=== PATIENT | female | born 1955 | race Caucasian/White ===

== ENCOUNTER 2016-08-28 16:45 | Emergency (ER) | payer MEDICARE, MEDICAID ==
[~2016-08-28] VITALS: Ht 154.9 cm; Wt 56.7 kg
[2016-08-28 16:45] VITALS: BP 122/65
[~2016-08-28 16:45] MED LIST: CALC500T52 PO; CHOL400T11 PO; CLON2TAB3 PO; DOCU-270 PO; FLUO40CA8 PO; GABA800T PO; HYDR-3326 PO; IBUP-1955 PO; MAG30ORA PO; PANT40SU PO
[2016-08-28] MEDS ORDERED: LORAZEPAM 1 MG TABLET ONE (18:18)
[2016-08-28] MEDS ORDERED: LORAZEPAM 1 MG TABLET PO ONE (18:30)
== END 2016-08-28 18:27 | disposition home or self-care (01) ==
LOC: ER 16:46
DX: F41.9 Anxiety disorder, unspecified (principal); F32.9 Major depressive disorder, single episode, unspecified; Z88.8 Allergy status to other drugs, medicaments and biological substances; Z88.6 Allergy status to analgesic agent; F17.200 Nicotine dependence, unspecified, uncomplicated; Z98.890 Other specified postprocedural states; Z96.659 Presence of unspecified artificial knee joint; G62.9 Polyneuropathy, unspecified
CPT/HCPCS: 99283; A4606; Z7610

== ENCOUNTER 2016-09-03 12:56 | Emergency (ER) | payer MEDICARE, MEDICAID ==
[~2016-09-03] VITALS: Ht 157.5 cm; Wt 65.8 kg
[2016-09-03 13:10] VITALS: BP 148/70
== END 2016-09-03 13:18 | disposition home or self-care (01) ==
LOC: ER 12:57
DX: F41.9 Anxiety disorder, unspecified (principal); G62.9 Polyneuropathy, unspecified; F17.200 Nicotine dependence, unspecified, uncomplicated; G89.29 Other chronic pain; F32.9 Major depressive disorder, single episode, unspecified; Z88.6 Allergy status to analgesic agent; Z88.8 Allergy status to other drugs, medicaments and biological substances
CPT/HCPCS: A4606; Z7610

== ENCOUNTER 2016-09-04 15:32 | Emergency (ER) | payer MEDICARE, MEDICAID ==
[~2016-09-04] VITALS: Ht 152.4 cm; Wt 54.4 kg
[2016-09-04 16:00] VITALS: BP 156/70
== END 2016-09-04 16:51 | disposition left against medical advice (07) ==
LOC: ER 15:38
DX: Z53.21 Procedure and treatment not carried out due to patient leaving prior to being seen by health care provider (principal)
CPT/HCPCS: A4606; A6402; Z7610

== ENCOUNTER 2016-09-06 13:37 | Emergency (ER) | payer MEDICARE, MEDICAID ==
[~2016-09-06] VITALS: Ht 91.4 cm; Wt 52.2 kg
[2016-09-06] MEDS ORDERED: IV NS 0.9% 1,000 ML BAG IV ONE (15:00)
[2016-09-06] MEDS ORDERED: IV NS 0.9% 1,000 ML ONE (15:08)
[2016-09-06] MEDS ORDERED: IV SET PRIMARY 1 EA INFUS.SET MC ONE (15:08)
[2016-09-06 15:11] LABS: BASOPHILS # (AUTO) 0.1 /CMM (0.0-0.2); BASOPHILS % (AUTO) 1.6 % (0.0-2.0); DIFF TOTAL % 100 %; EOSINOPHILS # (AUTO) 0.1 /CMM (0.0-0.7); EOSINOPHILS % (AUTO) 1.2 % (0.0-6.0); HEMATOCRIT 31 % (33-45); HEMOGLOBIN 10.2 g/dL (11.5-14.8); LYMPHOCYTES # (AUTO) 1.4 /CMM (0.8-4.8); LYMPHOCYTES % (AUTO) 22.3 % (20.0-44.0); MEAN CORPUSCULAR HEMOGLOBIN 26 PG (26.0-33.0); MEAN CORPUSCULAR HGB CONC 33 g/dl (31.0-36.0); MEAN CORPUSCULAR VOLUME 78 fL (82-100); MONOCYTES # (AUTO) 0.5 /CMM (0.1-1.30); MONOCYTES % (AUTO) 8.4 % (2.0-12.0); NEUTROPHILS # (AUTO) 4.4 /CMM (1.8-8.9); NEUTROPHILS % (AUTO) 66.5 % (43.0-81.0); PLATELET COUNT (AUTO) 298 /CMM (150-450); RED BLOOD CELL COUNT(AUTO) 3.99 MIL/uL (4.0-5.2); WHITE BLOOD COUNT (AUTO) 6.5 K/uL (4.3-11.0)
[2016-09-06 15:20] LABS: ANION GAP 10 (5-14); CALCIUM, SERUM 8.3 mg/dL (8.5-10.1); CARBON DIOXIDE 29 mmol/L (21-32); CHLORIDE 104 mmol/L (98-107); CREATININE 0.8 mg/dL (0.6-1.3); GFR 73 mL/min (>60); GLUCOSE 121 mg/dL (74-106); POTASSIUM 3.6 mmol/L (3.5-5.1); SODIUM SERUM 139 mmol/L (136-145); UREA NITROGEN, BLOOD 9 mg/dL (7-18)
[2016-09-06 15:34] LABS: ALANINE AMINOTRANSFERASE 14 U/L (12-78); ALBUMIN 3.3 g/dL (3.4-5.0); ASPARTATE AMINOTRANSFERASE 22 U/L (15-37); BILIRUBIN,DIRECT 0.1 mg/dL (0.0-0.2); BILIRUBIN,TOTAL 0.3 mg/dL (0.2-1.0); INDIRECT BILIRUBIN 0.2 mg/dL (0.0-1.1); TOTAL PROTEIN, SERUM 6.4 g/dL (6.4-8.2)
[2016-09-06 15:40] LABS: ACETAMINOPHEN 0 ug/ml (10-30)
[2016-09-06 18:13] VITALS: BP 115/78
== END 2016-09-06 18:14 | disposition home or self-care (01) ==
LOC: ER 13:40
DX: T43.221A Poisoning by selective serotonin reuptake inhibitors, accidental (unintentional), initial encounter (principal); G89.4 Chronic pain syndrome; F17.200 Nicotine dependence, unspecified, uncomplicated; Z88.6 Allergy status to analgesic agent; Z88.8 Allergy status to other drugs, medicaments and biological substances; Y92.89 Other specified places as the place of occurrence of the external cause
CPT/HCPCS: 36415; 80048; 80076; 85025; 93005; 99285; A4606; G0480; G0481; G0482; J7030; G6038-TC; G6039-TC; G6040-TC; Z7610

== ENCOUNTER 2016-09-07 01:18 | Emergency (ER) | payer MEDICARE, MEDICAID ==
[~2016-09-07] VITALS: Ht 147.3 cm; Wt 45.4 kg
[2016-09-07 05:53] VITALS: BP 142/79
== END 2016-09-07 05:54 | disposition home or self-care (01) ==
LOC: ER 01:21
DX: Z00.8 Encounter for other general examination (principal); F17.200 Nicotine dependence, unspecified, uncomplicated; G89.4 Chronic pain syndrome; Z88.6 Allergy status to analgesic agent; Z88.8 Allergy status to other drugs, medicaments and biological substances
CPT/HCPCS: 99283; A4606; Z7610

== ENCOUNTER 2016-09-07 09:46 | Emergency (ER) | payer MEDICARE, MEDICAID ==
[~2016-09-07] VITALS: Ht 152.4 cm; Wt 49.4 kg
[2016-09-07 10:00] VITALS: BP 132/71
[2016-09-07] MEDS ORDERED: PANTOPRAZOLE 40 MG TABLET.DR PO ONE ×2 (10:01→10:30)
[2016-09-07] MEDS ORDERED: OLANZAPINE 5 MG TABLET ONE (10:01)
[2016-09-07] MEDS ORDERED: OLANZAPINE 5 MG TABLET PO ONE (10:30)
== END 2016-09-07 10:14 | disposition home or self-care (01) ==
LOC: ER 09:48
DX: G89.4 Chronic pain syndrome (principal); F17.200 Nicotine dependence, unspecified, uncomplicated; Z76.5 Malingerer [conscious simulation]; Z88.5 Allergy status to narcotic agent; Z88.8 Allergy status to other drugs, medicaments and biological substances
CPT/HCPCS: 99283; A4606; Z7610

== ENCOUNTER 2016-09-07 14:18 | Emergency (ER) | payer MEDICARE, MEDICAID ==
[~2016-09-07] VITALS: Ht 152.4 cm; Wt 45.4 kg
[2016-09-07 14:24] VITALS: BP 151/75
== END 2016-09-07 15:08 | disposition home or self-care (01) ==
LOC: ER 14:20
DX: Z76.5 Malingerer [conscious simulation] (principal); G89.4 Chronic pain syndrome; F11.20 Opioid dependence, uncomplicated; F17.200 Nicotine dependence, unspecified, uncomplicated; Z98.890 Other specified postprocedural states; Z88.6 Allergy status to analgesic agent; Z88.8 Allergy status to other drugs, medicaments and biological substances
CPT/HCPCS: 99283; A4606; Z7610

== ENCOUNTER 2016-09-08 05:27 | Emergency (ER) | payer MEDICARE, MEDICAID ==
[~2016-09-08] VITALS: Ht 154.9 cm; Wt 45.4 kg
[2016-09-08 05:36] VITALS: BP 120/71
[2016-09-08 06:52] LABS: BASOPHILS # (AUTO) 0.1 /CMM (0.0-0.2); BASOPHILS % (AUTO) 0.8 % (0.0-2.0); DIFF TOTAL % 100 %; HEMATOCRIT 38 % (33-45); HEMOGLOBIN 12.1 g/dL (11.5-14.8); LYMPHOCYTES # (AUTO) 0.7 /CMM (0.8-4.8); LYMPHOCYTES % (AUTO) 10.7 % (20.0-44.0); MEAN CORPUSCULAR HEMOGLOBIN 26 PG (26.0-33.0); MEAN CORPUSCULAR HGB CONC 32 g/dl (31.0-36.0); MEAN CORPUSCULAR VOLUME 79 fL (82-100); MONOCYTES # (AUTO) 0.4 /CMM (0.1-1.30); MONOCYTES % (AUTO) 5.9 % (2.0-12.0); NEUTROPHILS # (AUTO) 5.5 /CMM (1.8-8.9); NEUTROPHILS % (AUTO) 82.6 % (43.0-81.0); PLATELET COUNT (AUTO) 371 /CMM (150-450); RED BLOOD CELL COUNT(AUTO) 4.75 MIL/uL (4.0-5.2); WHITE BLOOD COUNT (AUTO) 6.6 K/uL (4.3-11.0)
[2016-09-08 07:01] LABS: ANION GAP 14 (5-14); CALCIUM, SERUM 9.1 mg/dL (8.5-10.1); CARBON DIOXIDE 27 mmol/L (21-32); CHLORIDE 99 mmol/L (98-107); CREATININE 0.7 mg/dL (0.6-1.3); GFR 85 mL/min (>60); GLUCOSE 127 mg/dL (74-106); POTASSIUM 3.2 mmol/L (3.5-5.1); SODIUM SERUM 137 mmol/L (136-145); UREA NITROGEN, BLOOD 9 mg/dL (7-18)
[2016-09-08 07:07] LABS: ALANINE AMINOTRANSFERASE 19 U/L (12-78); ASPARTATE AMINOTRANSFERASE 21 U/L (15-37); BILIRUBIN,DIRECT 0.1 mg/dL (0.0-0.2); BILIRUBIN,TOTAL 0.3 mg/dL (0.2-1.0); INDIRECT BILIRUBIN 0.2 mg/dL (0.0-1.1); SALICYLATE 3.2 mg/dL (2.8-20.0); TOTAL PROTEIN, SERUM 7.7 g/dL (6.4-8.2)
[2016-09-08 07:10] LABS: ACETAMINOPHEN 0 ug/ml (10-30)
[2016-09-08 07:14] LABS: THYROID STIMULATING HORMONE 0.154 uIU/mL (0.358-3.74)
[2016-09-08] MEDS ORDERED: ACETAMINOPHEN 325 MG TABLET ONE (08:01)
[2016-09-08 08:16] LABS: CANNABINOID, URINE NEGATIVE (NEGATIVE); PHENCYCLIDINE SCREEN,URINE NEGATIVE (NEGATIVE)
[2016-09-08 08:19] LABS: ADD UA MICROSCOPIC YES; KETONES,URINE NEGATIVE (NEGATIVE); LEUKOCYTE ESTERASE ,URINE NEGATIVE (NEGATIVE)
[2016-09-08 08:30] LABS: ADD URINE CULTURE NO; WBC,URINE NONE SEEN /HPF (0-3)
[2016-09-08] MEDS ORDERED: ACETAMINOPHEN 650 MG/20.3 ML UDC PO ONE (08:30)
== END 2016-09-08 09:49 | disposition left against medical advice (07) ==
LOC: ER 05:29
DX: F41.9 Anxiety disorder, unspecified (principal); F32.9 Major depressive disorder, single episode, unspecified; G89.4 Chronic pain syndrome; F17.210 Nicotine dependence, cigarettes, uncomplicated; E05.90 Thyrotoxicosis, unspecified without thyrotoxic crisis or storm; Z88.8 Allergy status to other drugs, medicaments and biological substances; Z88.6 Allergy status to analgesic agent
CPT/HCPCS: 36415; 80048-TC; 80076-TC; 80305; 81000-TC; 84439-TC; 84443-TC; 84480; 85025-TC; A4606; G6038-TC; G6039-TC; G6040-TC; Z7610

== ENCOUNTER 2016-10-15 14:38 | Emergency (ER) | payer MEDICARE, MEDICAID ==
[~2016-10-15] VITALS: Ht 152.4 cm; Wt 45.4 kg
[2016-10-15 15:18] VITALS: BP 131/71
[2016-10-15] MEDS ORDERED: PROCHLORPERAZINE MALEATE 10 MG TABLET PO ONE (16:00)
[2016-10-15] MEDS ORDERED: clonazePAM 1 MG TABLET PO ONE (16:00)
== END 2016-10-15 15:43 | disposition home or self-care (01) ==
LOC: ER 14:41
DX: Z76.0 Encounter for issue of repeat prescription (principal); G89.4 Chronic pain syndrome; F32.9 Major depressive disorder, single episode, unspecified; K58.9 Irritable bowel syndrome, unspecified; F17.200 Nicotine dependence, unspecified, uncomplicated; F41.9 Anxiety disorder, unspecified; Z88.5 Allergy status to narcotic agent; Z88.8 Allergy status to other drugs, medicaments and biological substances
CPT/HCPCS: 99283; A4606; Z7610

== ENCOUNTER 2016-10-19 19:03 | Emergency (ER) | payer MEDICARE, MEDICAID ==
[~2016-10-19] VITALS: Ht 152.4 cm; Wt 45.4 kg
[2016-10-19] MEDS ORDERED: SULFAMETH/TRIMETH 800/160 MG 1 UDTAB TABLET PO ONE ×2 (19:26→19:30)
[2016-10-19] MEDS ORDERED: CEPHALEXIN MONOHYDRATE 500 MG CAPSULE PO ONE ×2 (19:27→19:30)
[2016-10-19] MEDS ORDERED: LIDOCAINE HCL/PF 1% 30 ML VIAL TP ONE (19:30)
[2016-10-19] MEDS ORDERED: SILVER SULFADIAZINE CREAM 25 GM TUBE ONE (19:44)
[2016-10-19] MEDS ORDERED: SILVER SULFADIAZINE CREAM 25 GM TUBE TP ONE (20:00)
[2016-10-19 20:06] VITALS: BP 103/67
== END 2016-10-19 20:07 | disposition home or self-care (01) ==
LOC: ER 19:05
DX: T23.231A Burn of second degree of multiple right fingers (nail), not including thumb, initial encounter (principal); Z76.5 Malingerer [conscious simulation]; F32.9 Major depressive disorder, single episode, unspecified; G89.4 Chronic pain syndrome; F17.200 Nicotine dependence, unspecified, uncomplicated; Z98.890 Other specified postprocedural states; Z88.6 Allergy status to analgesic agent; Z88.8 Allergy status to other drugs, medicaments and biological substances; Z96.659 Presence of unspecified artificial knee joint; X08.8XXA Exposure to other specified smoke, fire and flames, initial encounter; Y93.89 Activity, other specified; Y92.89 Other specified places as the place of occurrence of the external cause; Y99.8 Other external cause status
CPT/HCPCS: 10060; 99284; A4606; A6402; J3490; Z7610

== ENCOUNTER 2016-10-21 11:01 | Emergency (ER) | payer MEDICARE, MEDICAID ==
[~2016-10-21] VITALS: Ht 152.4 cm; Wt 45.4 kg
[2016-10-21 11:03] VITALS: BP 153/90
[2016-10-21 11:53] LABS: BASOPHILS % (AUTO) 0.4 % (0.0-2.0); DIFF TOTAL % 100 %; EOSINOPHILS % (AUTO) 0.4 % (0.0-6.0); HEMATOCRIT 31 % (33-45); HEMOGLOBIN 10.6 g/dL (11.5-14.8); LYMPHOCYTES # (AUTO) 1.2 /CMM (0.8-4.8); LYMPHOCYTES % (AUTO) 16.3 % (20.0-44.0); MEAN CORPUSCULAR HEMOGLOBIN 27 PG (26.0-33.0); MEAN CORPUSCULAR HGB CONC 34 g/dl (31.0-36.0); MEAN CORPUSCULAR VOLUME 78 fL (82-100); MONOCYTES # (AUTO) 0.5 /CMM (0.1-1.30); MONOCYTES % (AUTO) 6.6 % (2.0-12.0); NEUTROPHILS # (AUTO) 5.5 /CMM (1.8-8.9); NEUTROPHILS % (AUTO) 76.3 % (43.0-81.0); PLATELET COUNT (AUTO) 528 /CMM (150-450); RED BLOOD CELL COUNT(AUTO) 3.97 MIL/uL (4.0-5.2); WHITE BLOOD COUNT (AUTO) 7.2 K/uL (4.3-11.0)
[2016-10-21 12:03] LABS: ANION GAP 13 (5-14); CALCIUM, SERUM 8.6 mg/dL (8.5-10.1); CARBON DIOXIDE 27 mmol/L (21-32); CHLORIDE 100 mmol/L (98-107); CREATININE 0.7 mg/dL (0.6-1.3); GFR 85 mL/min (>60); GLUCOSE 95 mg/dL (74-106); POTASSIUM 3.4 mmol/L (3.5-5.1); SODIUM SERUM 137 mmol/L (136-145); UREA NITROGEN, BLOOD 8 mg/dL (7-18)
[2016-10-21 12:10] LABS: ACETAMINOPHEN 3 ug/ml (10-30); ALANINE AMINOTRANSFERASE 27 U/L (12-78); ALBUMIN 3.1 g/dL (3.4-5.0); ASPARTATE AMINOTRANSFERASE 24 U/L (15-37); BILIRUBIN,DIRECT 0.1 mg/dL (0.0-0.2); BILIRUBIN,TOTAL 0.2 mg/dL (0.2-1.0); INDIRECT BILIRUBIN 0.1 mg/dL (0.0-1.1); TOTAL PROTEIN, SERUM 7.1 g/dL (6.4-8.2)
[2016-10-21 13:09] LABS: ADD UA MICROSCOPIC NO; KETONES,URINE Negative (NEGATIVE); LEUKOCYTE ESTERASE ,URINE Negative (NEGATIVE)
[2016-10-21 13:16] LABS: CANNABINOID, URINE NEGATIVE (NEGATIVE); PHENCYCLIDINE SCREEN,URINE NEGATIVE (NEGATIVE)
== END 2016-10-21 15:27 ==
LOC: ER 11:03
DX: F32.9 Major depressive disorder, single episode, unspecified (principal); G89.4 Chronic pain syndrome; F17.200 Nicotine dependence, unspecified, uncomplicated; Z88.8 Allergy status to other drugs, medicaments and biological substances; Z88.6 Allergy status to analgesic agent
CPT/HCPCS: 36415; 80048; 80076; 80305; 80329; 81001; 85025; 99285; A4606; G0480 ×2; 81000-TC; G6039-TC; Z7610

== ENCOUNTER 2016-10-27 03:18 | Emergency (ER) | payer MEDICARE, MEDICAID | END 2016-10-27 03:47 | disposition left against medical advice (07) | LOC: ER 03:18 | DX: Z53.21 Procedure and treatment not carried out due to patient leaving prior to being seen by health care provider (principal) ==

== ENCOUNTER 2016-10-30 11:22 | Emergency (ER) | payer MEDICARE, MEDICAID ==
[~2016-10-30] VITALS: Ht 152.4 cm; Wt 65.8 kg
--- NOTE | 2016-10-30 11:49 | NUR ---
PT TO ED ROOM 02. FEELING ANXIOUS S/P "I COULDN'T SPEAK TO MY MOTHER YESTRDAY". A/A/O. AMBULATES WITH WALKER. SIDE RAILS UP. HOB ELEVATED. CONNECTED TO MONITOR. SEEN AND EVALAUTED BY ED PROVIDER.
[2016-10-30] MEDS ORDERED: LORAZEPAM 1 MG TABLET ONE (11:56)
[2016-10-30] MEDS ORDERED: LORAZEPAM 1 MG TABLET PO ONE (12:00)
--- NOTE | 2016-10-30 12:20 | NUR ---
Patient discharged to self care in stable condition. Written and verbal after care instructions given. Patient verbalizes understanding of instruction.
[2016-10-30 12:21] VITALS: BP 135/76
== END 2016-10-30 12:22 | disposition home or self-care (01) ==
LOC: ER 11:23
DX: F41.9 Anxiety disorder, unspecified (principal); F32.9 Major depressive disorder, single episode, unspecified; F17.210 Nicotine dependence, cigarettes, uncomplicated; Z88.8 Allergy status to other drugs, medicaments and biological substances; Z88.6 Allergy status to analgesic agent
CPT/HCPCS: 93005; 99284; A4606; Z7610

== ENCOUNTER 2016-10-31 19:49 | Emergency (ER) | payer MEDICARE, MEDICAID ==
[~2016-10-31] VITALS: Ht 152.4 cm; Wt 54.4 kg
[2016-10-31 20:01] VITALS: BP 139/84
--- NOTE | 2016-11-01 05:00 | NUR ---
Patient discharged to home in stable condition. Written and verbal after care instructions given. pt left without signing d/c papers.
[2016-11-01] MEDS ORDERED: FLUO10TA PO (19:22)
[2016-11-01] MEDS ORDERED: MELO-270 PO (19:22)
[2016-11-01] MEDS ORDERED: NAPR375T3 PO (19:22)
[2016-11-01] MEDS ORDERED: ACET-2605 PO (19:22)
[2016-11-01] MEDS ORDERED: DIPH25CA83 PO (19:22)
[2016-11-01] MEDS ORDERED: CEPH-570 PO (19:22)
== END 2016-11-01 05:00 | disposition home or self-care (01) ==
LOC: ER 19:50
DX: F41.9 Anxiety disorder, unspecified (principal); F32.9 Major depressive disorder, single episode, unspecified; G89.4 Chronic pain syndrome; F17.200 Nicotine dependence, unspecified, uncomplicated; Z88.6 Allergy status to analgesic agent; Z88.8 Allergy status to other drugs, medicaments and biological substances
CPT/HCPCS: A4606; Z7610

== ENCOUNTER 2016-11-01 12:56 | Inpatient (IN) | payer MEDICARE, MEDICAID ==
[~2016-11-01] VITALS: Ht 152.4 cm; Wt 49.4 kg
[2016-11-01] MEDS ORDERED: LORAZEPAM 1 MG TABLET PO ONE (18:00)
[2016-11-01] MEDS ORDERED: LORAZEPAM 1 MG TABLET ONE (18:19)
--- NOTE | 2016-11-01 18:38 | NUR ---
CALLED FOR FOOD TRAY
--- NOTE | 2016-11-01 19:00 | NUR ---
PT RESTING IN ER BED, NAD NOTED, SKIN WARM AND DRY. WILL CONTINUE TO MONITORED
[2016-11-01 19:09] LABS: CALCIUM, SERUM 8.9 mg/dL (8.5-10.1); CREATININE 0.8 mg/dL (0.6-1.3); POTASSIUM 3.8 mmol/L (3.5-5.1)
[2016-11-01 19:15] LABS: ALBUMIN 3.8 g/dL (3.4-5.0); BILIRUBIN,DIRECT 0.1 mg/dL (0.0-0.2); BILIRUBIN,TOTAL 0.4 mg/dL (0.2-1.0); TOTAL PROTEIN, SERUM 7.4 g/dL (6.4-8.2)
[2016-11-01] MEDS ORDERED: DIPH25CA83 PO (19:22)
[2016-11-01] MEDS ORDERED: MELO-270 PO (19:22)
[2016-11-01] MEDS ORDERED: ACET-2605 PO (19:22)
[2016-11-01] MEDS ORDERED: FLUO10TA PO (19:22)
[2016-11-01] MEDS ORDERED: NAPR375T3 PO (19:22)
[2016-11-01] MEDS ORDERED: CEPH-570 PO (19:22)
[2016-11-01 20:00] VITALS: BP 137/82
[2016-11-01 20:08] LABS: BASOPHILS # (AUTO) 0.1 /CMM (0.0-0.2); BASOPHILS % (AUTO) 0.8 % (0.0-2.0); EOSINOPHILS # (AUTO) 0.1 /CMM (0.0-0.7); EOSINOPHILS % (AUTO) 0.9 % (0.0-6.0); HEMATOCRIT 33 % (33-45); HEMOGLOBIN 11.2 g/dL (11.5-14.8); LYMPHOCYTES # (AUTO) 1.4 /CMM (0.8-4.8); LYMPHOCYTES % (AUTO) 19.3 % (20.0-44.0); MEAN CORPUSCULAR HEMOGLOBIN 27 PG (26.0-33.0); MEAN CORPUSCULAR HGB CONC 34 g/dl (31.0-36.0); MEAN CORPUSCULAR VOLUME 78 fL (82-100); MONOCYTES # (AUTO) 0.4 /CMM (0.1-1.30); MONOCYTES % (AUTO) 5.7 % (2.0-12.0); NEUTROPHILS # (AUTO) 5.1 /CMM (1.8-8.9); NEUTROPHILS % (AUTO) 73.3 % (43.0-81.0); PLATELET COUNT (AUTO) 501 /CMM (150-450); RDW COEFFICIENT OF VARIATION 15.8 (11.5-15.0); RED BLOOD CELL COUNT(AUTO) 4.24 MIL/uL (4.0-5.2); WHITE BLOOD COUNT (AUTO) 7.1 K/uL (4.3-11.0)
[2016-11-01] MEDS ORDERED: Z GUARD REMEDY 2 OZ OINT TP PRN (21:00)
[2016-11-01] MEDS ORDERED: MISCELLANEOUS MED 1 EA EA PO PRN (21:00)
[2016-11-01] MEDS ORDERED: NAPROXEN 375 MG TABLET PO PRN (21:00)
[2016-11-01] MEDS ORDERED: MAGNESIUM HYDROXIDE 30 ML UDC PO PRN (21:00)
[2016-11-01] MEDS ORDERED: CLONAZEPAM 1 MG PO PRN (21:00)
[2016-11-01] MEDS ORDERED: ACETAMINOPHEN 325 MG TABLET PO PRN (21:00)
[2016-11-01] MEDS ORDERED: ZOLPIDEM TARTRATE 5 MG TABLET PO PRN (21:00)
[2016-11-01 21:52] LABS: PREALBUMIN 26.3 MG/DL (18.0-35.7)
--- NOTE | 2016-11-01 22:06 | NUR ---
REPORT GIVEN TO GUNNER WARREN FOR DANG. 20G LEFT AC IV STARTED.
[2016-11-01 22:15] VITALS: BP 137/82
--- NOTE | 2016-11-01 22:15 | NUR ---
MS/FLOORING INSTALLER; ADMITTED 61 YEARS OLD FEMALE PT. FROM ER ACCOMPANIED BY ER MALE STAFF VIA PADMINIHatsizeDOV WITH DX: WT LOSS. PT ALERT AND ORIENTED. HL ON LAC INTACT. WITH ABRASION/ WOUND ON RT 4TH FINGER REFUSED PHOTO. PT REFUSED THE RESTS OF THE BODY TO BE ASSESSED. PT. REFUSED BED ALARM TO BE ON . PT INSTRUCTED TO CALL FOR HELP AND INSTRUCTED HOW TO OPERATE THE CALL LIGHT. BED ON LOWER POSITION AND LOCKED FOR SAFETY. UPPER PART OF BED SIDE RAILS ARE UP FOR SAFETY. CONTINUE TO MONITOR.
--- NOTE | 2016-11-01 22:15 | NUR ---
MS/INSIDE SALES TRAINER; ADMITTED 61 YEARS OLD FEMALE PT. FROM ER ACCOMPANIED BY ER MALE STAFF WITH DX; WT LOSS. PT ALERT AND ORIENTED X 3. NOTED PT WALKED FROM THE GURNEY TO THE BED WITH THE ER MALE STAFF. HL INTACT ON LAC. NOTED WITH ABRASION ON HER RT 4TH FINGER . PT REFUSED THE RESTS OF BODY ASSESSMENT AND REFUSED PHOTO ON HER RT 4TH FINGER. PLACED ON TELEMETRY. NOTED LT ELBOW SWOLLEN SHE SHE HAD SURGERY TO THIS ELBOW 8 YEARS AGO. PT REFUSED BED ALARM TO BE ON FOR SAFETY. I INSTRUCTED THE PT. TO CALL FOR HELP AND CALL LIGHT WITHIN REACH. I INSTRUCTED AGAIN THE PT. TO CALL WHEN SHE GOES TO THE BATHROOM FOR SAFETY. DENIES PAIN. BREATHING NON LABORED. Addendum: 11/02/16 at 0356 by IRWIN MOHAN LVN 2215 ERROR NO TELEMETRY. PT IS ON MED / SURG.
--- NOTE | 2016-11-01 22:45 | NUR ---
MS/DOUGH MIXER OPERATOR; DR. GUARDADO CAME AND EXAM. THE PT. I SHOW TO DR. GUARDADO THE MED. REC. AND SAID IT IS ALL IN THE COMPUTER.
--- NOTE | 2016-11-01 23:15 | NUR ---
C/O NAUSEA ZOFRAN 4 MG IV GIVEN BY THE RN ORDERED PRN.
[2016-11-01] MEDS ORDERED: ONDANSETRON HCL/PF 4 MG/2 ML VIAL ONE (23:16)
[2016-11-01] MEDS: ONDANSETRON HCL/PF 4 MG/2 ML VIAL IVP PRN (23:23)
--- NOTE | 2016-11-01 23:30 | NUR ---
MS/ANTENNA SPECIALIST; DR. GUARDADO SAID TO DO BLADDER SCAN.
--- NOTE | 2016-11-01 23:40 | NUR ---
MS/CRIMINAL ANALYST; BLADDER SCAN DONE NO URINE RESIDUAL AND DR. GUARDADO AWARE OF IT.
--- NOTE | 2016-11-02 02:00 | NUR ---
MS/COVER CREASER; PT AWAKE AND ANXIOUS. WANTS KLONOPIN. I CALLED DR. GUARDADO FOR KLONOPIN. I CALLED DR. GUARDADO FOR KLONOPIN ORDER AND HE ORDERED.
[2016-11-02] MEDS ORDERED: clonazePAM 1 MG TABLET ONE (02:30)
[2016-11-02] MEDS ORDERED: clonazePAM 1 MG TABLET PO PRN (02:30)
--- NOTE | 2016-11-02 02:40 | NUR ---
MS/PARKING METER COLLECTOR; KLONOPIN 1 MG PO 1 TAB. Q12 PRN GIVEN AT 0237.
--- NOTE | 2016-11-02 07:00 | NUR ---
MS/GENERAL MACHINE OPERATOR; SLEPT FAIRLY. BREATHING NON LABORED. PT. OWN MEDS SENT TO THE PHARMACY WITH PT SIGNATURE. WILL ENDORSE TO THE DAY SHIFT RN FOR DANG.
--- NOTE | 2016-11-02 07:30 | NUR ---
AM RN NOTE Received patient sleeping comfortably in her bed. No SOB noted resp evn and non-labored. IV site intact and patent. Bed in low locked position. Will continue to monitor.
[2016-11-02 08:00] VITALS: BP 141/82
[2016-11-02 08:05] LABS: BASOPHILS % (AUTO) 0.8 % (0.0-2.0); EOSINOPHILS # (AUTO) 0.1 /CMM (0.0-0.7); EOSINOPHILS % (AUTO) 1.8 % (0.0-6.0); HEMATOCRIT 31 % (33-45); HEMOGLOBIN 10.2 g/dL (11.5-14.8); LYMPHOCYTES # (AUTO) 1.6 /CMM (0.8-4.8); LYMPHOCYTES % (AUTO) 32.9 % (20.0-44.0); MEAN CORPUSCULAR HEMOGLOBIN 26 PG (26.0-33.0); MEAN CORPUSCULAR HGB CONC 33 g/dl (31.0-36.0); MEAN CORPUSCULAR VOLUME 79 fL (82-100); MONOCYTES # (AUTO) 0.4 /CMM (0.1-1.30); MONOCYTES % (AUTO) 8.1 % (2.0-12.0); NEUTROPHILS # (AUTO) 2.8 /CMM (1.8-8.9); NEUTROPHILS % (AUTO) 56.4 % (43.0-81.0); PLATELET COUNT (AUTO) 445 /CMM (150-450); RDW COEFFICIENT OF VARIATION 17.1 (11.5-15.0); RED BLOOD CELL COUNT(AUTO) 3.98 MIL/uL (4.0-5.2)
[2016-11-02 08:26] LABS: CALCIUM, SERUM 8.2 mg/dL (8.5-10.1); CREATININE 0.6 mg/dL (0.6-1.3); MAGNESIUM 1.9 mg/dL (1.8-2.4); PHOSPHORUS 4.1 mg/dL (2.5-4.9); POTASSIUM 4.1 mmol/L (3.5-5.1)
--- NOTE | 2016-11-02 08:30 | NUR ---
RN NOTE Patient with frequent demands, doesn't like served breakfast. Called dietary ordered substitutes.
[2016-11-02] MEDS: PANTOPRAZOLE 40 MG/PACK PACK PO SCH (08:47)
[2016-11-02] MEDS: Fluoxetine 10 mg capsule PO SCH (08:51)
[2016-11-02] MEDS: CEPHALEXIN MONOHYDRATE 500 MG CAPSULE PO SCH ×2 (08:51→16:36)
[2016-11-02] MEDS: HYDROCODONE/APAP 5/325MG 1 EACH TABLET PO PRN ×3 (08:52→21:25)
[2016-11-02] MEDS ORDERED: MELOXICAM 7.5 MG TABLET PO SCH ×2 (09:00)
[2016-11-02] MEDS: ONDANSETRON HCL/PF 4 MG/2 ML VIAL IVP PRN ×2 (10:38→23:45)
--- NOTE | 2016-11-02 11:30 | NUR ---
RN NOTE Patient awake, lying in her bed. All meds given as ordered. Patient frequently calling car wash supervisor and with frequent demands. Legal Executive spoke with patient. Will continue to monitor. All needs met and attended in timely manner.
--- NOTE | 2016-11-02 12:00 | NUR ---
RN NOTE Called dietary and patient requested for substitutes.
[2016-11-02] MEDS: clonazePAM 1 MG TABLET PO PRN ×2 (12:25→19:55)
[2016-11-02] MEDS ORDERED: IV SET PRIMARY PUMP SET 1 EA INFUS.SET MC ONE (12:26)
[2016-11-02] MEDS ORDERED: IV NS 0.9% 1,000 ML IV PRN (12:30)
[2016-11-02] MEDS ORDERED: SECONDARY IV SET 1 EA INFUS.SET MC ONE (14:29)
--- NOTE | 2016-11-02 14:30 | NUR ---
RN NOTE RN went into patient's room to start Ferrlecit, she stated, "Come back I am on the phone".
--- NOTE | 2016-11-02 15:00 | NUR ---
RN NOTE RN again went into patient room to start Ferrelecit IV medication. Patient stated , "I am still on the phone come back". CN made aware.
[2016-11-02] MEDS: SOD FERRIC GLUC 125 MG in IV NS 0.9% 100 ML IV SCH (15:09)
[2016-11-02 16:00] VITALS: BP 113/71
--- NOTE | 2016-11-02 17:00 | NUR ---
RN NOTE IV site noted with leakage, re-inserted new IV on RFA #20 by Charge nurse.
--- NOTE | 2016-11-02 17:09 | NUR ---
RN NOTE Patient asking for a shower, called Dr. Navarro with new order obtained ok to shower.
--- NOTE | 2016-11-02 18:13 | NUR ---
RN NOTE Patient remained needy with frequent demands. All needs met and attended in timely manner. Will endorse to next shift in stable condition.
--- NOTE | 2016-11-02 19:05 | NUR ---
RN NOTE RECEIVED REPORT. PT AAOX4, HAS MANY DEMANDS. NO S/S OF RESPIRATORY DISTRESS- NO C/O OF PAIN OR DISCOMFORT. RFA INTACT AND PATENT, TOLERATING FLUIDS WELL. PT REMINDED NEED OF UA SAMPLE. CALL LIGHT IN REACH, WILL CONT TO MONITOR.
[2016-11-02 20:00] VITALS: BP 134/74
--- NOTE | 2016-11-02 21:00 | NUR ---
RN NOTE MD AWARE OF PT TAKING METHADONE 50 MG DAILY. ORDERS CARRIED OUT.
[2016-11-02] MEDS ORDERED: METHADONE HCL 10 MG TABLET ONE (21:52)
[2016-11-02] MEDS ORDERED: METHADONE HCL 10 MG TABLET PO SCH (22:00)
[2016-11-03] MEDS: MAG HYDROX/AL HYDROX/SIMETH 30 ML UDC PO PRN (02:05)
[2016-11-03] MEDS: clonazePAM 1 MG TABLET PO PRN ×3 (03:03→17:57)
--- NOTE | 2016-11-03 03:07 | NUR ---
RN NOTE PT REQUESTED AND RECEIVED PO PRN ATIVAN FOR ANXIOUSNESS. WILL MONITOR FOR EFFECTIVENESS.
[2016-11-03 06:47] LABS: BASOPHILS # (AUTO) 0.1 /CMM (0.0-0.2); EOSINOPHILS # (AUTO) 0.1 /CMM (0.0-0.7); EOSINOPHILS % (AUTO) 2.7 % (0.0-6.0); HEMATOCRIT 31 % (33-45); HEMOGLOBIN 9.8 g/dL (11.5-14.8); LYMPHOCYTES % (AUTO) 38.1 % (20.0-44.0); MEAN CORPUSCULAR HEMOGLOBIN 25 PG (26.0-33.0); MEAN CORPUSCULAR HGB CONC 32 g/dl (31.0-36.0); MEAN CORPUSCULAR VOLUME 79 fL (82-100); MONOCYTES # (AUTO) 0.5 /CMM (0.1-1.30); MONOCYTES % (AUTO) 8.9 % (2.0-12.0); NEUTROPHILS # (AUTO) 2.6 /CMM (1.8-8.9); NEUTROPHILS % (AUTO) 49.3 % (43.0-81.0); PLATELET COUNT (AUTO) 398 /CMM (150-450); RDW COEFFICIENT OF VARIATION 17.8 (11.5-15.0); RED BLOOD CELL COUNT(AUTO) 3.86 MIL/uL (4.0-5.2); WHITE BLOOD COUNT (AUTO) 5.3 K/uL (4.3-11.0)
[2016-11-03] MEDS: HYDROCODONE/APAP 5/325MG 1 EACH TABLET PO PRN (06:47)
[2016-11-03 07:12] LABS: APPEARANCE,URINE CLEAR (CLEAR); BILIRUBIN,URINE NEGATIVE (NEGATIVE); BLOOD, URINE NEGATIVE Ery/uL (NEGATIVE); COLOR,URINE YELLOW (YELLOW); KETONES,URINE NEGATIVE (NEGATIVE); LEUKOCYTE ESTERASE ,URINE NEGATIVE (NEGATIVE); NITRITE, URINE NEGATIVE (NEGATIVE); PH,URINE 7.5 (5.0-8.0); PROTEIN,URINE NEGATIVE (NEGATIVE); UGLUCOSE NEGATIVE (NEGATIVE); UROBILINOGEN,URINE 0.2 EU/dL (0.2)
[2016-11-03 07:16] LABS: CALCIUM, SERUM 8.3 mg/dL (8.5-10.1); CREATININE 0.6 mg/dL (0.6-1.3); MAGNESIUM 1.9 mg/dL (1.8-2.4)
--- NOTE | 2016-11-03 07:35 | NUR ---
RN NOTE PT UP IN BED AAOX4, VERY DEMANDING T/O SHIFT. NO C/O OF PAIN OR DISCOMFORT AT THIS TIME. BREATHING EVEN AND NON-LABORED. IV SITE INTACT AND PATENT, REFUSING IV FLUIDS. ALL NEEDS ATTENDED TO, WILL F/U WITH DAY SHIFT FOR DANG.
[2016-11-03 07:52] VITALS: BP 137/89
[2016-11-03 08:00] VITALS: BP 131/86
[2016-11-03] MEDS: CEPHALEXIN MONOHYDRATE 500 MG CAPSULE PO SCH ×2 (08:09→17:21)
[2016-11-03] MEDS: Fluoxetine 10 mg capsule PO SCH (08:09)
[2016-11-03] MEDS: PANTOPRAZOLE 40 MG/PACK PACK PO SCH (08:09)
[2016-11-03] MEDS ORDERED: METHADONE HCL 10 MG TABLET PO SCH (09:00)
--- NOTE | 2016-11-03 09:03 | NUR ---
MS/RN: notes Spoke to Nurse Maritza Holbrook at Methadone clinic ( ), verified patient takes Methadone 50 mg daily.
[2016-11-03] MEDS: METHADONE HCL 10 MG TABLET PO SCH (10:19)
--- NOTE | 2016-11-03 10:33 | NUR ---
WOUND CARE CONSULT: PATIENT SEEN AND SKIN ASSESSMENT DONE. PATIENT ALERT, CONTINENT, INDEPENDENT WITH BED MOBILITY, BETSY 17. SEE TODAY'S SKIN ASSESSMENT IN PCS ALONG WITH RECOMMENDATIONS DISCUSSED WITH NURSING STAFF. IN AGREEMENT WITH PLAN OF CARE. CHARGE NURSE STATED PATIENT PLANNED FOR DISCHARGE TODAY. Addendum: 11/03/16 at 1035 by HENOK DENNIS WNDNU Amended: Links added.
--- NOTE | 2016-11-03 11:15 | NUR ---
MS/RN: notes patient complains unable to void, bladder scan done, residual 119 ml, FELT COVERER Marisa made aware.
--- NOTE | 2016-11-03 11:42 | NUR ---
SMILEY met with Captain Siddiqui from [facility]. Pt. had called Capt. Siddiqui complaining about her stay at [facility]. Pt. is known to Capt. Siddiqui from out in the community. Capt. Siddiqui informed SMILEY he has a resource for pt. to contact [employer] for possible housing. SMILEY also gave Capt. Siddiqui information to [facility] in [place] . SMILEY contacted [employer] and left a voicemail message.
[2016-11-03] MEDS: ONDANSETRON HCL/PF 4 MG/2 ML VIAL IVP PRN ×3 (12:32→22:29)
[2016-11-03] MEDS: SOD FERRIC GLUC 125 MG in IV NS 0.9% 100 ML IV SCH (14:41)
[2016-11-03] MEDS: NEOMY SULF/BACITRAC ZN/POLY 15 GM TUBE TP SCH (14:41)
[2016-11-03 16:00] VITALS: BP 130/80
[2016-11-03] MEDS: DOCUSATE SODIUM 100 MG CAPSULE PO PRN (18:42)
--- NOTE | 2016-11-03 18:44 | NUR ---
MS/RN: notes patient reassessed per Medical / Surgical protocol, no acute change noted from initial shift assessment, please see completed data in flowsheets. patient a/o x4, adequate oxygenation on room air, saturation >97%, no shortness of breath noted, denies pain, vss, afebrile. complaining nausea, no vomiting noted.prn given for nausea, complaining difficulty to urinate, bladder scan done, no bladder retention noted, residual 119 ml, patient stated able to urinate. No BM noted during the shift, prn given for constipation. wound consult done. all patient needs met and attended in time manner. will continue to monitor closely and intervene as appropriate.
[2016-11-03] MEDS: diphenhydrAMINE HCL 25 MG CAPSULE PO PRN (20:07)
--- NOTE | 2016-11-03 20:10 | NUR ---
RN NOTE RECEIVED REPORT. PT AAOX4, APPEARS AGITATED. NO S/S OF RESPIRATORY DISTRESS, BREATHING EVEN AND NON-LABORED. ON ROOM AIR. R AC INTACT AND PATENT, REFUSING FLUIDS. CALL LIGHT IN REACH, WILL CONT TO MONITOR.
[2016-11-03 20:22] VITALS: BP 134/74
[2016-11-03 20:36] VITALS: BP 132/57
[2016-11-04] MEDS: clonazePAM 1 MG TABLET PO PRN ×3 (04:56→23:33)
--- NOTE | 2016-11-04 05:00 | NUR ---
BLADDER SCAN 55ML. PT STATING SHE IS ABLE TO URINATE ON OWN, BUT WITH DIFFICULTY. ALSO HAD 1 BM.
[2016-11-04] MEDS: diphenhydrAMINE HCL 25 MG CAPSULE PO PRN ×3 (05:31→20:04)
--- NOTE | 2016-11-04 06:06 | NUR ---
RN NOTE PT UP IN BED AAOX4, VERY DEMANDING T/O SHIFT. ALL NEEDS MEET IN A TIMELY MANNER. NO C/O OF PAIN OR DISCOMFORT AT THIS TIME. BREATHING EVEN AND NON-LABORED. IV SITE INTACT AND PATENT. ALL NEEDS ATTENDED TO, WILL F/U WITH DAY SHIFT FOR DANG.
[2016-11-04 08:00] VITALS: BP 136/91
[2016-11-04] MEDS: PANTOPRAZOLE 40 MG/PACK PACK PO SCH (09:35)
[2016-11-04] MEDS: METHADONE HCL 10 MG TABLET PO SCH (09:35)
[2016-11-04] MEDS: CEPHALEXIN MONOHYDRATE 500 MG CAPSULE PO SCH ×2 (09:35→16:06)
[2016-11-04] MEDS: Fluoxetine 10 mg capsule PO SCH (09:36)
[2016-11-04] MEDS: NEOMY SULF/BACITRAC ZN/POLY 15 GM TUBE TP SCH (09:37)
[2016-11-04 11:22] VITALS: BP 136/91
[2016-11-04] MEDS: HYDROCODONE/APAP 5/325MG 1 EACH TABLET PO PRN ×2 (11:37→17:54)
[2016-11-04] MEDS: ONDANSETRON HCL/PF 4 MG/2 ML VIAL IVP PRN (11:38)
--- NOTE | 2016-11-04 11:45 | NUR ---
SW contacted [facility] and spoke to [facility] who informed SW to have pt. contact them between 1 and 3PM for a phone intake. SW met with pt. bedside. Pt. is A&O x 4. SW gave pt. information to [facility] and requested for pt. to contact them between 1 and 3PM. Pt. informed SW that she is aware of their program.
[2016-11-04] MEDS: SOLIFENACIN SUCCINATE 5 MG TABLET PO SCH (13:55)
[2016-11-04] MEDS: SOD FERRIC GLUC 125 MG in IV NS 0.9% 100 ML IV SCH (13:56)
[2016-11-04 16:00] VITALS: BP 146/82
--- NOTE | 2016-11-04 19:00 | NUR ---
RN NOTES PT UP IN BED AAOX4, VERY DEMANDING T/O SHIFT. ALL NEEDS MEET IN A TIMELY MANNER. NO C/O OF PAIN OR DISCOMFORT AT THIS TIME. BREATHING EVEN AND NON-LABORED. IV SITE INTACT AND PATENT. ALL NEEDS ATTENDED TO, WILL ENDORSE TO PYROTECHNIST FOR DANG.
[2016-11-04] MEDS: DOCUSATE SODIUM 100 MG CAPSULE PO PRN (20:04)
[2016-11-04 20:15] VITALS: BP 112/63
--- NOTE | 2016-11-04 20:15 | NUR ---
MS RN NOTE: PATIENT RESTING IN BED, NO ACUTE DISTRESS NOTED. BREATHING EVEN AND UNLABORED, NO SOB NOTED AT THIS TIME. HL TO RAC IN PLACE. PATIENT COMPLAINS OF ITCHINESS AND REQUESTING BENADRYL. BENADRYL 25MG ORAL GIVEN PER MD ORDER. PATIENT ALSO COMPLAINS OF CONSTIPATION AND REQUEST FOR COLACE. COLACE 100MG ORAL GIVEN PER MD ORDER. BED LOCKED AND IN LOWEST POSITION, CALL LIGHT IN REACH. WILL CONTINUE TO MONITOR.
--- NOTE | 2016-11-04 23:45 | NUR ---
MS RN NOTE: PATIENT COMPLAINS OF ANXIETY AND REQUESTING KLONOPIN. KLONOPIN 1MG ORAL GIVEN PER MD ORDER. WILL CONTINUE TO MONITOR.
[2016-11-05] MEDS: MAG HYDROX/AL HYDROX/SIMETH 30 ML UDC PO PRN (00:09)
[2016-11-05] MEDS: HYDROCODONE/APAP 5/325MG 1 EACH TABLET PO PRN (00:09)
--- NOTE | 2016-11-05 00:15 | NUR ---
MS RN NOTE: PATIENT COMPLAINS OF ABDOMINAL PAIN 03/26 REQUESTING NORCO AND MAALOX FOR UPSET STOMACH. NORCO 5/325MG ORAL AND MAALOX GIVEN PER MD ORDER. WILL CONTINUE TO MONITOR.
[2016-11-05] MEDS: diphenhydrAMINE HCL 25 MG CAPSULE PO PRN ×2 (03:23→09:52)
--- NOTE | 2016-11-05 06:00 | NUR ---
MS RN NOTE: PATIENT RESTING IN BED, NO ACUTE DISTRESS NOTED. BREATHING EVEN AND UNLABORED, NO SOB NOTED AT THIS TIME. HL TO RAC IN PLACE. BED LOCKED AND IN LOWEST POSITION, CALL LIGHT IN REACH. WILL ENDORSE TO DAY NURSE TO CONTINUE WITH PLAN OF CARE.
[2016-11-05] MEDS: PANTOPRAZOLE 40 MG/PACK PACK PO SCH (06:40)
[2016-11-05 08:00] VITALS: BP 123/74
--- NOTE | 2016-11-05 08:00 | NUR ---
ms rn received on bed,awake,alert,oriented x4,not in any form of distress, but patient is so mean to everybody. will monitor patient's condition.
[2016-11-05] MEDS: NEOMY SULF/BACITRAC ZN/POLY 15 GM TUBE TP SCH (09:00)
--- NOTE | 2016-11-05 09:00 | NUR ---
ms calle breakfast served,due meds given,tolerated well.
[2016-11-05] MEDS: CEPHALEXIN MONOHYDRATE 500 MG CAPSULE PO SCH (09:46)
[2016-11-05] MEDS: SOLIFENACIN SUCCINATE 5 MG TABLET PO SCH (09:47)
[2016-11-05] MEDS: Fluoxetine 10 mg capsule PO SCH (09:47)
[2016-11-05] MEDS: METHADONE HCL 10 MG TABLET PO SCH (09:48)
[2016-11-05] MEDS: clonazePAM 1 MG TABLET PO PRN (09:52)
--- NOTE | 2016-11-05 10:30 | NUR ---
SW met with pt. bedside to discuss discharge plan. Pt. wants to go to [facility] pharmacy located at [address] [place] [address]. upon discharge. Pt. was given the following resources: [facility] [employer] programs, Drop-in centers and shelters list and list of Homeless Resource Directory that included food isaacs, transitional housing, hot meals and showers, emergency housing services, sober livings, churches etc..Pt. will be discharged via taxi to the aforementioned address of the pharmacy. Pt. refused to sign Homeless Patient Waiver Form stating, " I am not homeless."
[2016-11-05] MEDS ORDERED: SOLI5TAB PO (10:47)
[2016-11-05] MEDS ORDERED: CLON1TAB PO (10:47)
[2016-11-05] MEDS: ONDANSETRON HCL/PF 4 MG/2 ML VIAL IVP PRN (11:00)
--- NOTE | 2016-11-05 11:00 | NUR ---
ms rn was able to talked w/ upper caser, ready to go home . patient refused to take picture and wound dressing to her bilateral thumb wounds, did it herself.
--- NOTE | 2016-11-05 12:00 | NUR ---
ms rn patient discharge w/ prescriptions given to her, wanted to go to pharmacy first, karthik was called, no distress noted.
== END 2016-11-05 11:44 | disposition home or self-care (01) | DRG 641 ==
LOC: ER 12:59 → MED 22:09
PROVIDERS: ADMIT Family Medicine; ATTEND Family Medicine
DX: E86.0 Dehydration (principal); F11.20 Opioid dependence, uncomplicated; R53.1 Weakness; E87.1 Hypo-osmolality and hyponatremia; D50.9 Iron deficiency anemia, unspecified; D63.8 Anemia in other chronic diseases classified elsewhere; Z59.0 Homelessness; M19.90 Unspecified osteoarthritis, unspecified site; K21.9 Gastro-esophageal reflux disease without esophagitis; I10 Essential (primary) hypertension; F32.9 Major depressive disorder, single episode, unspecified; F10.10 Alcohol abuse, uncomplicated; Z96.649 Presence of unspecified artificial hip joint; Z96.659 Presence of unspecified artificial knee joint
CPT/HCPCS: 36415; 80048-TC; 80061-TC; 80076-TC; 81000-TC; 82728-TC; 83540-TC; 83735-TC; 84100-TC; 84134-TC; 84443-TC; 85025-TC; 87081-TC; A4606; J2405; J2916; J7030; Q0163; Z7610

== ENCOUNTER 2016-11-05 21:21 | Inpatient (IN) | payer MEDICARE, MEDICAID ==
[~2016-11-05] VITALS: Ht 154.9 cm; Wt 55.3 kg
[~2016-11-05 21:21] MED LIST changes: +ACET-2605 PO; -CALC500T52 PO; +CEPH-570 PO; -CHOL400T11 PO; +CLON1TAB PO; +DIPH25CA83 PO; -DOCU-270 PO; +FLUO10TA PO; -FLUO40CA8 PO; -GABA800T PO; -HYDR-3326 PO; -IBUP-1955 PO; -MAG30ORA PO; +MELO-270 PO; +NAPR375T3 PO; +SOLI5TAB PO
[2016-11-05] MEDS ORDERED: IV NS 0.9% 1,000 ML ONE ×2 (21:25→23:01)
[2016-11-05] MEDS ORDERED: IV SET PRIMARY 1 EA INFUS.SET MC ONE ×2 (21:25→23:01)
--- NOTE | 2016-11-05 21:25 | NUR ---
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 PT STATES SHE TOOK 1MG CLONOPAM AND "2" BENADRYL, PT BECAME DROWSIE, EMS WAS CALLED. SKIN WARM AND DRY, RR EVEN AND UNLABORED. AWAITING ORDERS FROM PROVIDER
--- NOTE | 2016-11-05 21:30 | NUR ---
18G LEFT FA IV STARTED, BLOOD SAMPLE OBTAINED AND SENT TO LAB. MEDICATED PT ORDERED
[2016-11-05 21:47] LABS: BASOPHILS # (AUTO) 0.1 /CMM (0.0-0.2); BASOPHILS % (AUTO) 1.5 % (0.0-2.0); EOSINOPHILS # (AUTO) 0.3 /CMM (0.0-0.7); EOSINOPHILS % (AUTO) 3.7 % (0.0-6.0); HEMATOCRIT 29 % (33-45); HEMOGLOBIN 9.7 g/dL (11.5-14.8); LYMPHOCYTES # (AUTO) 2.1 /CMM (0.8-4.8); LYMPHOCYTES % (AUTO) 23.2 % (20.0-44.0); MEAN CORPUSCULAR HEMOGLOBIN 26 PG (26.0-33.0); MEAN CORPUSCULAR HGB CONC 34 g/dl (31.0-36.0); MEAN CORPUSCULAR VOLUME 78 fL (82-100); MONOCYTES # (AUTO) 0.7 /CMM (0.1-1.30); MONOCYTES % (AUTO) 7.7 % (2.0-12.0); NEUTROPHILS # (AUTO) 5.8 /CMM (1.8-8.9); NEUTROPHILS % (AUTO) 63.9 % (43.0-81.0); PLATELET COUNT (AUTO) 385 /CMM (150-450); RED BLOOD CELL COUNT(AUTO) 3.69 MIL/uL (4.0-5.2)
[2016-11-05 21:55] LABS: CALCIUM, SERUM 8.1 mg/dL (8.5-10.1); CARBON DIOXIDE 34 mmol/L (21-32); CHLORIDE 98 mmol/L (98-107); CREATININE 0.8 mg/dL (0.6-1.3); GFR 73 mL/min (>60); GLUCOSE 109 mg/dL (74-106); POTASSIUM 3.6 mmol/L (3.5-5.1); SODIUM SERUM 135 mmol/L (136-145); UREA NITROGEN, BLOOD 11 mg/dL (7-18)
--- NOTE | 2016-11-05 21:59 | NUR ---
PT'S O2 SAT WAS AT 87% ON 3L VIA NC. PT IS MOUTH BREATHING. PT WAS PLACED ON SIMPLE MASK AT 8L. PT IS NOW SATURATING AT 97%
[2016-11-05 22:00] LABS: ACETAMINOPHEN 16 ug/ml (10-30); ALANINE AMINOTRANSFERASE 16 U/L (12-78); ALBUMIN 3.4 g/dL (3.4-5.0); ALCOHOL, BLOOD < 3 mg/dL (0-0); ALKALINE PHOSPHATASE 94 U/L (46-116); ASPARTATE AMINOTRANSFERASE 16 U/L (15-37); BILIRUBIN,DIRECT 0.1 mg/dL (0.0-0.2); BILIRUBIN,TOTAL 0.2 mg/dL (0.2-1.0); TOTAL PROTEIN, SERUM 6.3 g/dL (6.4-8.2)
[2016-11-05] MEDS ORDERED: IV NS 0.9% 1,000 ML BAG IV ONE ×2 (22:00→23:30)
[2016-11-05 22:02] LABS: SALICYLATE 1.9 mg/dL (2.8-20.0)
--- NOTE | 2016-11-05 22:34 | NUR ---
TIME OUT DONE. PT IS ON MONITOR AND CONTINUOUS PULSE OX. RT AT THE BEDSIDE. DR. RODRIGUEZ IS AT THE BEDSIDE. PT HAS NO GAG.
--- NOTE | 2016-11-05 22:36 | NUR ---
16G IV RAC STARTED.
--- NOTE | 2016-11-05 22:36 | NUR ---
BAGGING IN PROCESS.
[2016-11-05 22:37] LABS: APPEARANCE,URINE CLEAR (CLEAR); BILIRUBIN,URINE NEGATIVE (NEGATIVE); BLOOD, URINE NEGATIVE Ery/uL (NEGATIVE); COLOR,URINE YELLOW (YELLOW); KETONES,URINE NEGATIVE (NEGATIVE); LEUKOCYTE ESTERASE ,URINE NEGATIVE (NEGATIVE); NITRITE, URINE NEGATIVE (NEGATIVE); PROTEIN,URINE NEGATIVE (NEGATIVE); UGLUCOSE NEGATIVE (NEGATIVE); UROBILINOGEN,URINE 0.2 EU/dL (0.2)
--- NOTE | 2016-11-05 22:37 | NUR ---
60 MG SUCC IVP GIVEN BY BRIANA COLORADO
--- NOTE | 2016-11-05 22:37 | NUR ---
BAGGING PT. INTUBATING WITH GLIDASCOPE.
--- NOTE | 2016-11-05 22:38 | NUR ---
PT INTUBATED. POSITIVE COLOR CHANGE. 22 AT THE LIP. 7.5 ETT.
--- NOTE | 2016-11-05 22:45 | NUR ---
NG TUBE INSERTED 55CM AT THE LIP 8FR
[2016-11-05 22:48] LABS: CANNABINOID, URINE NEGATIVE (NEGATIVE); PHENCYCLIDINE SCREEN,URINE NEGATIVE (NEGATIVE)
--- NOTE | 2016-11-05 22:51 | NUR ---
LOZADA CATH PLACED ORDERED
[2016-11-05 22:57] VITALS: BP 140/80
[2016-11-05] MEDS ORDERED: ROCURONIUM BROMIDE 100 MG/10 ML VIAL IV ONE (23:00)
--- NOTE | 2016-11-05 23:02 | NUR ---
PT REC'D IN ER DISORIENTED WITH LABORED BREATHING AND DIMINISHED BREATH SOUNDS. PT INTUBATED PER DR ROSE ORDER WITH ETT SZ 7 AND 22 @ LIP. PT PL[address] ON [facility] VENT SETTINGS CHARTED PER DR ROSE REQUEST. VENT IS PLUGGED IN RED OUTLET, ALARMS ARE SET AND AUDIBLE, AND COLOR ROOM ATTENDANT CUFF PRESSURE NOTED. WILL CONTINUE TO MONITOR PT. Addendum: 11/05/16 at 2305 by HENRY HENRY RT Amended: Links added.
[2016-11-05 23:22] LABS: ABG BASE EXCESS 1.4 mmol/L; ABG OXYGEN SATURATION 97.3 % (92.0-98.5); ABG PCO2 60.9 mmHg (35.0-45.0); ABG PH 7.293 (7.350-7.450); ABG PO2 112.3 mmHg (75.0-100.0); ABG TOTAL HEMOGLOBIN 10.2 G/dL (12.0-16.0); AaDO2 102.9 mmHg; COHb 1.2 % (0.5-1.5); MetHb 0.5 % (0.0-1.5); O2Hb 95.6 % (94.0-97.0); SITE, ABG Right Radial; VENT MODE, BG AC 16 450 40% +5
--- NOTE | 2016-11-05 23:32 | NUR ---
VENT SETTINGS AC 16 450TV PEEP 5.0 FIO2 40%
[2016-11-05] MEDS ORDERED: PROPOFOL 100 ML IV ONE (23:38)
[2016-11-05] MEDS ORDERED: IV SET PRIMARY PUMP SET 1 EA INFUS.SET MC ONE (23:38)
[2016-11-06] VITALS (37 sets, daily range): BP systolic 75–141; BP diastolic 45–95
[2016-11-06] MEDS ORDERED: PROPOFOL 100 ML IV PRN
--- NOTE | 2016-11-06 00:13 | NUR ---
TRANSPORTED PT TO ICU BED WITHOUT INCIDENT
[2016-11-06] MEDS: PROPOFOL 100 ML IV PRN ×2 (00:28→09:49)
[2016-11-06] MEDS ORDERED: Z GUARD REMEDY 2 OZ OINT TP PRN (00:30)
[2016-11-06] MEDS ORDERED: MAGNESIUM HYDROXIDE 30 ML UDC PO PRN (00:30)
[2016-11-06] MEDS ORDERED: ONDANSETRON HCL/PF 4 MG/2 ML VIAL IVP PRN (00:30)
[2016-11-06] MEDS ORDERED: ACETAMINOPHEN 650 MG/SUPP.RECT RC PRN (00:30)
[2016-11-06] MEDS ORDERED: MAG HYDROX/AL HYDROX/SIMETH 30 ML UDC PO PRN (00:30)
[2016-11-06] MEDS ORDERED: ENOXAPARIN SODIUM 40 MG/0.4 ML DISP.SYRIN SQ SCH (00:30)
[2016-11-06] MEDS ORDERED: IV SET PRIMARY PUMP SET 1 EA INFUS.SET MC ONE ×2 (00:31→10:06)
[2016-11-06] MEDS ORDERED: ENOXAPARIN SODIUM 40 MG/0.4 ML DISP.SYRIN SQ ONE (00:31)
[2016-11-06] MEDS ORDERED: IV NS 0.9% 1,000 ML ONE (00:31)
[2016-11-06] MEDS: IV NS 0.9% 1,000 ML IV PRN ×3 (00:39→20:12)
--- NOTE | 2016-11-06 00:58 | NUR ---
DRAPERY EXAMINER; SEEN AND EXAMINED BY DR GRIMM, MADE AWARE BP STILL LOW, ORDERS TO GIVE ONE LITRE BOLUS AND CONTINUE NS AT 100 ML/HR. IF STILL LOW THEN START LEVOPHED. DIPRIVAN RUNNING AT 20 MCG/KG/MIN ONGOING MONITORING...
[2016-11-06] MEDS ORDERED: IV NS 0.9% 500 ML IV ONE ×2 (01:00→01:03)
--- NOTE | 2016-11-06 01:00 | NUR ---
FOUNDER PRESIDENT AND CEO: ADMISSION NOTE: RECEIVED PT FROM ER AT 0005, ADMITTING DX ACUTE RESPIRATORY FAILURE DUE TO OVERDOSE, SEDATED WITH DIPRIVAN, ETT 7.0 , 22 CM ON LIP LINE. PT RECEIVED 2 LITRE BOLUS IN ER. ADMITTED UNDER DR GRIMM. ALL ADMISSION ASSESSMENT DONE. LEFT ELBOW HAS SWELLING NOTED. SKIN IS INTACT. BILATERAL HEELS CRACKED NOTED. IV ACCESS RIGHT AC #16, LEFT FORE ARM # 18. V/S STABLE. ONGOING MONITORING...
--- NOTE | 2016-11-06 01:01 | NUR ---
PT RECEIVED INTUBATED 7.0 ETT SECURED AT 22CM AT THE LIP. AC 16,450,40%, +5. SX'D FOR MOD AMT OF THIN WHITE SECRETIONS. ELEUTERIO ALARMS SET AND AUDIBLE. AMBU BAG AT BEDSIDE. WILL CONTINUE TO MONITOR. Addendum: 11/06/16 at 0103 by ROSELIA PHILLIPS RT Amended: Links added.
[2016-11-06] MEDS ORDERED: NOREPINEPHRINE 8 MG in IV D5W 500 ML IV PRN (02:00)
[2016-11-06] MEDS ORDERED: MORPHINE SULFATE INJ 2 MG/ML DISP.SYRIN ONE ×2 (02:39→21:44)
[2016-11-06] MEDS: MORPHINE SULFATE INJ 2 MG/ML DISP.SYRIN IV PRN ×3 (02:46→21:51)
--- NOTE | 2016-11-06 02:47 | NUR ---
interior horticulturist: pt looks in pain, restless, facial grimacing, morphine 2mg iv prn given, pt does have past history of chronic pain .
--- NOTE | 2016-11-06 07:30 | NUR ---
INTERACTIVE WEB DEVELOPER: BEDSIDE REPORT GIVEN TO GEMA. PT ON DIPRIVAN AT 20 MCG/KG/MIN. IV FLUID NS AT 100 ML/HR.
--- NOTE | 2016-11-06 07:45 | NUR ---
ICU/RN - Initial Notes Received pt in bed orally intubated to mechanical vent with settings as ordered. Pt sedated but easily awaken to touch. Alert to self and surroundings and moves upper extremities purposefully. On bilateral soft wrist restraints for safety, as pt attempt to pull out tubes and lines. NGT to right nare kept clamped, NPO as ordered. Pineda catheter intact draining urine to gravity. IV patent and intact, with IVF and Diprivan titrate infusing well. Safety and comfort measures in place. Will continue to monitor pt closely.
[2016-11-06] MEDS: PANTOPRAZOLE 40 MG VIAL IV SCH (08:12)
[2016-11-06 08:52] LABS: ABG BASE EXCESS 1.7 mmol/L; ABG OXYGEN SATURATION 98.3 % (92.0-98.5); ABG PCO2 35.4 mmHg (35.0-45.0); ABG PH 7.471 (7.350-7.450); ABG PO2 151.2 mmHg (75.0-100.0); ABG TOTAL HEMOGLOBIN 9.5 G/dL (12.0-16.0); AaDO2 93.3 mmHg; COHb 0.8 % (0.5-1.5); MetHb 1.1 % (0.0-1.5); O2Hb 96.4 % (94.0-97.0); SITE, ABG Right Brachial
--- NOTE | 2016-11-06 09:25 | NUR ---
ICU/RN - Notes Pt seen and examined by Dr Hartmann at bedside. Pt noted to be agitated, attempting to remove restraints, bucking down on vent. Reorientation provided to pt, pt still agitated. Diprivan titrated up to provide adequate sedation. New orders received from Dr Hartmann, will carry out.
[2016-11-06] MEDS ORDERED: DC PROPOFOL WHEN EXTUBATED XX PRN ×2 (11:00→16:30)
--- NOTE | 2016-11-06 11:28 | NUR ---
PATIENT ON CONTINOUS MECHANICAL VENTILATOR WITH SAME VENT SETTINGS. AROUSABLE AND RESTING QUIETELY. FOUND ENDOTRACHEAL TUBE ON 24 CM LIP JOSEPH. CARINA VO NP. ORDERED TO RETRACT ET TUBE 3CM AND WAS DONE NO RETAKE CXR PER ANDREY LIM. MAYBE EXTUBATE LATER. JORGE BETANCOURT AND SHANTI BEDSIDE NURSE.SPO2 100% HR 68 BP 126/74 RR 16 CONTINUE VENT SUPPORT. RANDA FOSTER Addendum: 11/06/16 at 1159 by JACKELYN HIGUERA RT Amended: Links added.
--- NOTE | 2016-11-06 11:34 | NUR ---
ICU/RN - Notes ETT retracted to 21cm at the lip by Malcolm PATEL as ordered by Alpa Miles NP. Per EMERGENCY MANAGER, no need for repeat CXR post retraction. Addendum: 11/06/16 at 1310 by CANDELARIA REMY RN Per report by Radiologist upon reviewing CXR - recommends 3cm retraction.
--- NOTE | 2016-11-06 11:50 | NUR ---
ICU/RN - Notes Alpa Miles BREAD WRAPPER made aware of pt's swelling on left elbow/upper arm, and CXR noted left proximal humerus deformity. Per BREAD WRAPPER, will take a look.
--- NOTE | 2016-11-06 13:59 | NUR ---
WOUND CARE CONSULT: PATIENT SEEN AND SKIN ASSESSMENT DONE. PATIENT INTUBATED, MENTATION ALTERED, INCONTINENT, BETSY 13, ON BILATERAL SOFT WRIST RESTRAINTS DUE TO MOVABLE IN BED, AT RISK FOR FALLS, BETSY 13. SEE TODAY'S SKIN ASSESSMENT IN PCS ALONG WITH RECOMMENDATIONS. RECOMMEND MOISTURE PROTECTION WITH Z GUARD PRN AND PRESSURE PREVENTION MEASURES ORDERED. ALL DISCUSSED WITH NURSING STAFF. MD IN AGREEMENT WITH PLAN OF CARE. Addendum: 11/06/16 at 1402 by HENOK DENNIS WNDNU Amended: Links added.
[2016-11-06] MEDS: NEOMY SULF/BACITRAC ZN/POLY 15 GM TUBE TP SCH (14:38)
[2016-11-06] MEDS: UREA 10% -AHA 4% CREAM 57 GM TUBE TP SCH ×2 (14:38→16:55)
--- NOTE | 2016-11-06 15:35 | NUR ---
ICU/RN - Notes Diprivan drip turned off, pt awake and alert, able to follow commands. Pt placed on SIMV mode on mechanical vent by RT Skinner per Dr Hartmann's orders.
--- NOTE | 2016-11-06 15:54 | NUR ---
ICU/RN - Notes NG tube removed as pt pulled it out.
[2016-11-06 16:10] LABS: ABG BASE EXCESS -0.9 mmol/L; ABG PCO2 25.5 mmHg (35.0-45.0); ABG PH 7.531 (7.350-7.450); ABG PO2 133.4 mmHg (75.0-100.0); AaDO2 50.5 mmHg; COHb 0.5 % (0.5-1.5); MetHb 0.7 % (0.0-1.5); O2Hb 96.8 % (94.0-97.0); PEEP,BG 5 cm H2O; SITE, ABG Left Radial; VENT MODE, BG SIMV 4 PS12; VT, ABG 450 mL
--- NOTE | 2016-11-06 16:21 | NUR ---
RT PER DR MARTEL PATIENT WEANED AND EXTUBATED. PLACED ON 2L N/C LATANYA WELL
--- NOTE | 2016-11-06 16:25 | NUR ---
ICU/RN - Notes Pt extubated by RT, placed on O2 @ 2lpm. Tolerating well. Pt asked if pt overdosed on medications was an attempt to suicide, in response pt stated "No! I'm not that stupid! I would never take my life." Pt asked to call family members to update them on status. Attempted to call pt's family as pt provided number, but unable to reach. Pt aware. Addendum: 11/06/16 at 1704 by CANDELARIA REMY RN Bilateral soft wrist restraints removed, as pt follow commands.
--- NOTE | 2016-11-06 18:16 | NUR ---
ICU/RN - Notes Pt able to sit on bed and ambulate to the bathroom with standby assist. Bowel movement noted. Pt needy with several requests, requesting for ice chips, diet cola x2, grilled cheese sandwich. Pt eating dinner at this time, no aspiration noted.
--- NOTE | 2016-11-06 18:25 | NUR ---
ICU/RN - Notes Pt complains of chest discomfort 9 out of 10, vitals signs stable. Administered Morphine 2mg IVP as ordered for PRN pain. Comfort measures rendered. Will reassess pain accordingly.
[2016-11-06] MEDS: ACETAMINOPHEN 325 MG TABLET PO PRN (20:07)
--- NOTE | 2016-11-06 20:07 | NUR ---
ICU/RN- PT CO HEADACHES AND CHEST PAIN WHEN INHALING. OFFERED PT TYLENOL TO REDUCE PAIN. TYLENOL 650 MG PO GIVEN FOR MILD PAIN. TOLERATED WELL. NO ADVERSE REACTION NOTED. PT A/OX4, VERY SUSPICIOUS AND VERBALLY OFFENSIVE. REDIRECTION RENDERED. CALMING MEASURES EFFECTIVE AT THIS TIME. SNACKS OFFERED. WILL CONT TO MONITOR
[2016-11-06] MEDS: ENOXAPARIN SODIUM 40 MG/0.4 ML DISP.SYRIN SQ SCH (20:08)
[2016-11-06] MEDS ORDERED: LORAZEPAM 1 MG TABLET ONE (21:43)
[2016-11-06] MEDS: LORAZEPAM 1 MG TABLET PO PRN (21:50)
--- NOTE | 2016-11-06 21:51 | NUR ---
ANESTHETIC ASSISTANT DF PT C/O AGITATION C/O MODERATE PAIN GENERALIZED/RIGHT HIP PAIN. PT USUALLY TAKES KLONOPIN 1MG QID. I CONTACTED MD GRIMM AND ATIVAN 1MG PO PRN Q 6HR ORDERED. PT WAS VERY AGITATED DEMANDING WANTING TO SPEAK WITH CHARGE NURSE REGARDING NURSING CARRE. PT UNHAPPY WITH CURRENT STAFF I REASSURED PT SHE IS GETTING GOOD NURSING CARE AND PT STATING SHE IS ANXIOUS AND IN PAIN AND IT SOMETIMES AFFECTS HER BEHAVIOR. ALL NEEDS ATTENDED AND ADDRESSED. PT MEDICATED NOTED.
--- NOTE | 2016-11-06 22:46 | NUR ---
PHARMACY OPERATIONS MANAGER DF (CHARGE NOTE) PT IS COMPLAINING THAT NURSING STAFF HAS BEEN RUDE AND UNPROFESSIONAL TO HER. PT HAS BEEN DEMANDING AND RUDE TO STAFF I OBSERVED PT SEVERAL TIMES BEING RUDE AND SAYING OFFENSIVE STATEMENTS TO HER PRIMARY NURSE DEVIKA. PT FEELS THAT NURSES ARE RUDE TO HER BUT I HAVE NOT OBSERVED THIS A PROBLEM OR OCCURRING. I SPENT TIME TALKING WITH PT ADDRESSING AND OFFERING SOLUTIONS TO HER COMPLAINTS. PT IS COOPERATIVE AT THIS TIME AND CONDITION STABLE. ALL NEEDS AND COMPLAINTS ADDRESSED.
--- NOTE | 2016-11-06 23:58 | NUR ---
ICU/RN- PT REFUSING BP CUFF AT THIS TIME.
[2016-11-07] VITALS (18 sets, daily range): BP systolic 105–150; BP diastolic 58–89
[2016-11-07] MEDS: MORPHINE SULFATE INJ 2 MG/ML DISP.SYRIN IV PRN ×3 (02:11→10:25)
--- NOTE | 2016-11-07 02:11 | NUR ---
PIT CREW SUPPORT WORKER DF PT MEDICATED WITH MORPHINE 2MG IVP PER HER REQUEST. PT HAS CHRONIC PAIN SYNDROME C/O GENERALIZED PAIN 5-02/23. I MEDICATED PT WITH MORPHINE 2MG IVP. PT A/OX4 COOPERATIVE AT THIS TIME.
[2016-11-07 04:35] LABS: BASOPHILS % (AUTO) 0.4 % (0.0-2.0); EOSINOPHILS # (AUTO) 0.3 /CMM (0.0-0.7); EOSINOPHILS % (AUTO) 4.1 % (0.0-6.0); HEMATOCRIT 27 % (33-45); HEMOGLOBIN 8.8 g/dL (11.5-14.8); LYMPHOCYTES # (AUTO) 1.3 /CMM (0.8-4.8); LYMPHOCYTES % (AUTO) 16.1 % (20.0-44.0); MEAN CORPUSCULAR HEMOGLOBIN 26 PG (26.0-33.0); MEAN CORPUSCULAR HGB CONC 32 g/dl (31.0-36.0); MEAN CORPUSCULAR VOLUME 79 fL (82-100); MONOCYTES # (AUTO) 0.7 /CMM (0.1-1.30); MONOCYTES % (AUTO) 8.7 % (2.0-12.0); NEUTROPHILS # (AUTO) 5.9 /CMM (1.8-8.9); NEUTROPHILS % (AUTO) 70.7 % (43.0-81.0); PLATELET COUNT (AUTO) 275 /CMM (150-450); RDW COEFFICIENT OF VARIATION 17.7 (11.5-15.0); RED BLOOD CELL COUNT(AUTO) 3.43 MIL/uL (4.0-5.2); WHITE BLOOD COUNT (AUTO) 8.3 K/uL (4.3-11.0)
[2016-11-07 04:45] LABS: CALCIUM, SERUM 7.5 mg/dL (8.5-10.1); CREATININE 0.5 mg/dL (0.6-1.3); MAGNESIUM 1.8 mg/dL (1.8-2.4); PHOSPHORUS 3.4 mg/dL (2.5-4.9); POTASSIUM 3.6 mmol/L (3.5-5.1)
[2016-11-07] MEDS ORDERED: LORAZEPAM 1 MG TABLET ONE (05:07)
--- NOTE | 2016-11-07 05:11 | NUR ---
RAILROAD CARMAN DF PT REQUESTING DOCUMENTATION TO STATE SHE HAS BEEN HOSPITALIZED SINCE October. PT CONCERNED SHE HAS A PENDING COURT DATE AND MAY NOT BE ABLE TO ATTEND SECONDARY TO HOSPITALIZATION. I PROVIDED PATIENT WITH REQUESTED DOCUMENTATION AND PLACED A FIRESTOP/CONTAINMENT WORKER CONSULTATION FOR FOLLOW UP PT HOMELESS AND IS REQUESTING TO SPEAK WITH FIRESTOP/CONTAINMENT WORKER PRIOR TO DISCHARGE.
--- NOTE | 2016-11-07 05:13 | NUR ---
CREW MEMBER DF PT AGITATED REQUESTING ATIVAN 1MG PO Q 6 HR. MEDICATED PT REQUESTED. PT A/OX4 VSS NAD NOTED.
[2016-11-07] MEDS: LORAZEPAM 1 MG TABLET PO PRN ×2 (05:15→16:45)
[2016-11-07] MEDS: ACETAMINOPHEN 325 MG TABLET PO PRN ×3 (06:11→23:00)
--- NOTE | 2016-11-07 06:12 | NUR ---
COTTON BALL BAGGER DF PT MEDICATED WITH MORPHINE 2MG IVP PER HER REQUEST. PT HAS CHRONIC PAIN SYNDROME C/O GENERALIZED PAIN 5-02/23. I MEDICATED PT WITH MORPHINE 2MG IVP. PT A/OX4 COOPERATIVE AT THIS TIME.
[2016-11-07] MEDS: IV NS 0.9% 1,000 ML IV PRN (06:54)
--- NOTE | 2016-11-07 07:30 | NUR ---
INITIAL TIMBER FELLER NOTE RCVD PT AWAKE AND ALERT SHOWING NO S/O DISTRESS, C/O SORENESS OVER CHEST AREA. PT STATES THIS IS DUE TO INTUBATION. CURRENTLY ON RA TOLERATING WELL. LOZADA IN PLACE DRAINING CLEAR, YELLOW URINE. SR ON TELE HR 81. LEFT FA #18 AND RIGHT FA #16 C/D/I/PATENT. NO S/O INFILTRATION OR PHLEBITIS OBSERVED UPON FLUSHING. WILL CONTINUE TO MONITOR PT FOR SAFETY AND COMFORT. CALL LIGHT WITHIN REACH. BED IN LOW AND LOCKED POSITION.
[2016-11-07] MEDS: UREA 10% -AHA 4% CREAM 57 GM TUBE TP SCH ×2 (08:00→17:14)
[2016-11-07] MEDS: NEOMY SULF/BACITRAC ZN/POLY 15 GM TUBE TP SCH (08:00)
[2016-11-07] MEDS: PANTOPRAZOLE 40 MG VIAL IV SCH (08:00)
[2016-11-07] MEDS ORDERED: IV NS 0.9% 1,000 ML IV PRN (08:46)
--- NOTE | 2016-11-07 08:51 | NUR ---
INTEGRATED CIRCUIT DESIGN ENGINEER NOTE ANDREY WOODRUFF AT BEDSIDE EXAMINED PT. PT AMBULATORY WITH UNSTEADY GAIT REFUSES ASSISTANCE TO BATHROOM. REQUESTED TO GET LOZADA REMOVED, RANJAN AGREED. PT WILL LET ME KNOW WHEN READY TO REMOVE LOZADA. AT THIS TIME PT REFUSES TO BE CONNECTED BACK TO THE BEDSIDE MONITOR OR IVF. WILL CONTINUE TO MONITOR PT.
--- NOTE | 2016-11-07 09:20 | NUR ---
NURSE ANESTHESIA PROGRAM DIRECTOR NOTE PT ALLOWED ME TO D/C LOZADA CATH. PROCEDURE DONE WITHOUT PROBLEMS. PT INSTRUCTED TO INFORM RN REGARDING ANY DIFFICULTY WHEN VOIDING. WILL CONTINUE ASSESSING PT. PT AGREED TO BE RECONNECTED TO THE BEDSIDE MONITOR.
--- NOTE | 2016-11-07 10:29 | NUR ---
Social service consult requested by ICU CRDoug Gipson for homelessness. Per H&P report by Dr. Monahan, pt. is a 61-year-old female with reported history of depression, anxiety who was brought in after being found complaining of drowsiness at a local liquor store. She states she took a 1mg of Klonopin and '2' Benadryl and became drowsy. Patient extremely lethargic in the emergency room and had inability to protect airway on further evaluation necessitating emergent intubation. Patient seen intubated without distress, Tox screen positive for benzodiazepines and opiates. Chest x-ray with possible right lower lobe infiltrate. SW is familiar with pt. from previous admission. SW attempted to meet with pt. bedside, however pt. declined visit with SW and informed SW to come back within an hour. SW to follow up with pt. within the next few hours to assess pt. Psychiatrist Dr. Ruano to evaluate pt.
--- NOTE | 2016-11-07 11:47 | NUR ---
SW received a call from pt. stating she is ready to speak with SW. SW met with pt. bedside. Pt. is A&O x 4. Pt. was being cordial with SW. Pt. informed SW she has a court date with [address] on [address] with [address] but not sure of the date. Pt. has a verification of admission letter that was written by HARISH Martines and wants it to be sent to the courts. Pt. does not have a ticket number and has a warrant. SW informed pt. she will contact the courts and try to assist pt. if possible. SW inquired with pt. as to what transpired after her discharge from the hospital a few days ago to bring her back to the hospital again. Pt. informed SW that she had her Klonopin prescription filled and had taken two Klonopin's. and went to see a longtime friend who resides at [facility]. Pt. stated her friend became agitated and started yelling at her. Pt. states she left the facility feeling humiliated and upset and took two more Klonopin's. Pt. stated she took the bus to [facility] on [facility] and [facility] and went inside the restaurant since she was feeling weak and woozy. Pt. states she went to several businesses requesting for someone to call 911 but no one did. Pt. finally went into a [employer] and a lady called 911 for the pt. Pt. does not remember what happened after the ambulance arrived. Pt. denies suicidal/homicidal ideations and visual/auditory hallucinations at this time. Pt. is awaiting a psych. consult with Dr. Ruano. SMILEY contacted [address] [phone] [phone] to inquire about pt's court dates, however the phone service will be open at 1:30PM. SMILEY to try back then.
[2016-11-07] MEDS ORDERED: FLUOXETINE HCL 20 MG CAPSULE PO SCH (12:00)
[2016-11-07] MEDS: FLUOXETINE HCL 20 MG CAPSULE PO SCH (12:00)
--- NOTE | 2016-11-07 12:17 | NUR ---
PLASTICS FABRICATOR AND ASSEMBLER NOTE PT SEEN BY DR. TRENT HE STATES PT DOES NOT NEED SITTER OR IS SUICIDAL AT THIS TIME. PT INSISTING ON LEAVING REFUSING TO SIGN AMA FORM. PER MILEY PT IS CLEARED PSYCHIATRICALLY. PT DEMANDS TO BE DISCHARGED. PT WAS EXPLAINED THAT SHE IS NOT MEDICALLY CLEARED AT THIS TIME AND MD UNABLE TO DISCHARGE HER. PT STATES SHE WILL LEAVE THE HOSPITAL PREMISES WITHOUT SIGNING AMA FORM. MAGGIE, CRN INFORMED. BILATERAL IV SITES DISCONTINUED. BOTH CATHETER TIPS INTACT.
--- NOTE | 2016-11-07 12:29 | NUR ---
SW received a call from pt. upset and yelling stating she is leaving the hospital and doesn't want to stay. Pt. was upset she was being assessed by a psychiatrist. SW accompanied social donor services coordinator Bia Stovall to ICU and discussed case with MARI Gipson. Pt. was seen by Dr. Guajardo and is cleared psychiatrically. SW informed pt. she is not medically cleared for discharge as of yet. Pt. insisted on leaving and refused to sign AMA form. Pt. stated she will leave the hospital without signing AMA form. SMILEY inquired with pt. where would she like to be discharged to. Pt. [facility] [place] [address]. SMILEY gave the address of location to BRIANA Wright. Pt. to be transported via taxi.
--- NOTE | 2016-11-07 12:36 | NUR ---
LACING STRING CUTTER NOTE PT STATES THAT SHE WILL BE STAYING TO HAVE LUNCH AND THEN LEAVE.
[2016-11-07] MEDS: GABAPENTIN 300 MG CAPSULE PO SCH ×2 (13:00→16:45)
--- NOTE | 2016-11-07 13:16 | NUR ---
EDGE BONDER NOTE PT STATES THAT SHE FEELS WEAK, HER CHEST FEELS SORE. PT WAS RE-ASSURED THAT THIS IS DUE TO THE INTUBATION AND WILL GO AWAY WITH TIME. PT INSISTS. ANDREY WOODRUFF INFORMED OF PT'S SYMPTOMS. WILL F/U.
--- NOTE | 2016-11-07 13:44 | NUR ---
PT STATES "THAT I AM GOING TO NEED A BODYGUARD" ONCE I LEAVE THE HOSPITAL AND HAS CALLED [employer] TO COMPLAIN THAT WE ARE EMOTIONALLY HARMING HER. I HAVE INFORMED NURSING SUP. AND ICU COORDINATOR THAT I WILL LEAVE WORK EARLY IF THEY CANNOT TRANSFER PT TO MED SURG AREA THE ORDER STIPULATES
[2016-11-07] MEDS ORDERED: LORAZEPAM 1 MG TABLET FOR INSOMNIA PO PRN ×6 (14:00→14:30)
[2016-11-07] MEDS ORDERED: LORAZEPAM 1 MG TABLET FOR AGITATION PO PRN ×6 (14:00→14:30)
[2016-11-07] MEDS ORDERED: MAGNESIUM HYDROXIDE 30 ML UDC PO PRN (14:30)
[2016-11-07] MEDS ORDERED: ACETAMINOPHEN ES 500 MG TABLET PO PRN (14:30)
[2016-11-07] MEDS ORDERED: MAG HYDROX/AL HYDROX/SIMETH 30 ML UDC PO PRN (14:30)
[2016-11-07] MEDS ORDERED: IBUPROFEN 200 MG TABLET PO PRN (14:30)
--- NOTE | 2016-11-07 14:41 | NUR ---
TRUCK DOCK MATERIAL MOVER NOTE ANDREY LIM PLACED ORDERS FOR CARDIAC WORKUP. WILL F/U. PT REFUSES BEING ON BEDSIDE MONITOR STATING THAT THE LEADS HURT HER CHEST. WILL CONTINUE MONITORING PT.
--- NOTE | 2016-11-07 15:37 | NUR ---
SMILEY received a call from ICU stating that pt. would like to speak to SW. SMILEY met with pt. bedside. Pt. inquired with SW if she called the [facility]. SW informed pt. she had not called them because pt. was indecisive with wanting to stay or leave AMA. SMILEY informed pt. she will call the [facility] now. SMILEY contacted [facility] civil department and spoke to Emerald who informed SMILEY there is no case pending perhaps it is criminal case and to contact . SMILEY contacted the criminal division at [facility] however, their office is closed from 1:30-3:30PM M-F. SMILEY relayed the information to the patient and gave her the phone number for future reference.
--- NOTE | 2016-11-07 16:30 | NUR ---
INGOT BUGGY OPERATOR NOTE RESULTS FROM CARDIAC WORKUP GIVEN TO ANDREY WOODRUFF AND CARINA BALDERAS. NO NEW ORDERS RCVD. WILL CONTINUE TO MONITOR PT WHO CONTINUES TO C/O CHEST PAIN AND REQUESTING MORPHINE IVP. ANDREY WOODRUFF WAS ALSO INFORMED OF PT'S REQUEST FOR VESICARE AND BENTYL. RCVD ORDER FOR VESICARE. ANDREY WOODRUFF WILL ASSESS PT IN AM AND DETERMINE THE NEED FOR BENTYL SINCE IT'S NOT LISTED ON HER HOME MED LIST. PT INFORMED OF THIS.
[2016-11-07] MEDS: SOLIFENACIN SUCCINATE 5 MG TABLET PO SCH (17:14)
--- NOTE | 2016-11-07 17:15 | NUR ---
AEROSPACE ENGINEER OFFICER ARMAMENT NOTE PT VERY AGITATED AND IRRITABLE AFTER BEING INFORMED THAT MORPHINE WAS NOT RE-ORDERED FOR HER. PT INFORMED THAT ONLY PAIN MEDICATION AVAILABLE IS TYLENOL WHICH SHE TOOK EARLIER TODAY. PT ON THE PHONE COMPLAINED TO HOUSE KEVIN ABOUT HER LACK OF CARE. PT STATES THAT SHE IS ON METHADONE 50MG. I INFORMED PT THAT PHARMACY NEEDS TO CALL METHADONE CLINIC TO VERIFY DOSE AND MEDICATION BEFORE DISPENSING IT HERE. METHADONE NOT LISTED UNDER HER HOME MEDICATIONS. PT CONTINUES TO BE IRRITABLE AND AGITATED. WILL CONTINUE TO MONITOR.
--- NOTE | 2016-11-07 18:36 | NUR ---
TRANSFER CONTACT LENS CURVE GRINDER NOTE PT TRANSFERRED TO [facility] 2 ROOM 203 VIA WHEELCHAIR, REPORT GIVEN TO BRIANA PIMENTEL. PT TRANSFERRED SHOWING NO S/O DISTRESS OR C/O PAIN AT THE TIME. NO IV ACCESSES PRESENT. TOLERATING DIET WELL. BEFORE LEAVING UNIT PT BECAME VERY IRRITATED THROWING HER DINNER TRAY TO THE FLOOR AND BREAKING THE DISH. PT WAS UNHARMED, EVS CALLED TO CLEAN ROOM.
--- NOTE | 2016-11-07 18:36 | NUR ---
M/S RN - RECEIVED PT FROM ICU TO MS2 RECEIVED REPORT FROM VIVIENNE WARREN. PT BROUGHT TO FLOOR VIA WHEELCHAIR. PT AGITATED, PARANOID, AOX4. AMBULATED FROM WHEELCHAIR TO BED. NO IV ACCESS AT THIS TIME. ALL BELONGINGS CONFIRMED WITH PT AT TIME OF TRANSFER. VITALS TAKEN. PT ORIENTED TO ROOM. PLACED ON NC 2L O2.
[2016-11-07] MEDS ORDERED: METH10TA2 PO (19:04)
--- NOTE | 2016-11-07 19:30 | NUR ---
MS RN NOTE: PATIENT RESTING IN BED, NO ACUTE DISTRESS NOTED. BREATHING EVEN AND UNLABORED, NO SOB NOTED. PATIENT WITH NO IV ACCESS AND REFUSES TO HAVE NURSE START AN IV. PATIENT REQUESTING FOR PAIN MEDICATIONS, BUT PATIENT ONLY HAS TYLENOL ORDERED. WILL CONTACT SKULL SPLITTER MD FOR PAIN MEDICATIONS. BED LOCKED AND IN LOWEST POSITION, CALL LIGHT IN REACH. WILL CONTINUE TO MONITOR.
[2016-11-07] MEDS: clonazePAM 0.5 MG TABLET PO PRN (20:53)
[2016-11-07] MEDS: ENOXAPARIN SODIUM 40 MG/0.4 ML DISP.SYRIN SQ SCH (20:57)
--- NOTE | 2016-11-07 22:00 | NUR ---
MS RN NOTE: CALLED ASSISTANT FOOD SERVICE DIRECTOR SERVICE, SPOKE TO DR. GRIMM REGARDING PAIN MEDICATIONS. INFORMED THAT PATIENT ONLY HAS TYLENOL. SINCE PATIENT CAME IN FOR OPIATES OVERDOSE, DR. GRIMM DOES NOT WANT TO ORDER ANY OPIATES. WILL INFORM PATIENT.
--- NOTE | 2016-11-07 22:15 | NUR ---
MS RN NOTE: PATIENT REQUESTING TO SPEAK TO PERMIT AGENT. SPOKE TO MARCIE AND SHE CAME UP TO THE FLOOR AND SPOKE WITH PATIENT REGARDING PAIN MEDICATIONS. INFORMED PATIENT THAT MD DID NOT ORDER ANY PAIN MEDICATIONS SINCE SHE OVERDOSED ON OPIATES. WILL CONTINUE TO MONITOR.
--- NOTE | 2016-11-08 00:30 | NUR ---
MS RN NOTE: PATIENT STATES THAT SHE GOES TO THE METHADONE CLINIC AND TO HAVE THE MD COORDINATE FOR PATIENT'S METHADONE MEDICATIONS. [facility] NUMBER [phone].
--- NOTE | 2016-11-08 06:30 | NUR ---
MS RN NOTE: PATIENT RESTING IN BED, NO ACUTE DISTRESS NOTED. BREATHING EVEN AND UNLABORED, NO SOB NOTED. BED LOCKED AND IN LOWEST POSITION, CALL LIGHT IN REACH. WILL ENDORSE TO DAY NURSE TO CONTINUE WITH PLAN OF CARE.
[2016-11-08 06:32] LABS: BASOPHILS % (AUTO) 0.4 % (0.0-2.0); EOSINOPHILS # (AUTO) 0.3 /CMM (0.0-0.7); EOSINOPHILS % (AUTO) 4.9 % (0.0-6.0); HEMATOCRIT 30 % (33-45); HEMOGLOBIN 9.5 g/dL (11.5-14.8); LYMPHOCYTES # (AUTO) 1.1 /CMM (0.8-4.8); MEAN CORPUSCULAR HEMOGLOBIN 26 PG (26.0-33.0); MEAN CORPUSCULAR HGB CONC 32 g/dl (31.0-36.0); MEAN CORPUSCULAR VOLUME 80 fL (82-100); MONOCYTES # (AUTO) 0.4 /CMM (0.1-1.30); MONOCYTES % (AUTO) 7.2 % (2.0-12.0); NEUTROPHILS # (AUTO) 4.1 /CMM (1.8-8.9); NEUTROPHILS % (AUTO) 68.5 % (43.0-81.0); PLATELET COUNT (AUTO) 279 /CMM (150-450); RDW COEFFICIENT OF VARIATION 18.1 (11.5-15.0); RED BLOOD CELL COUNT(AUTO) 3.69 MIL/uL (4.0-5.2); WHITE BLOOD COUNT (AUTO) 5.9 K/uL (4.3-11.0)
--- NOTE | 2016-11-08 07:00 | NUR ---
MS RN OPENING NOTES Received pt. in stable condition, awake and standing by bedside. No pain or signs of distress noted. Bed light in low locked position, side rails up x2, pt. call light within reach. Will continue to monitor.
[2016-11-08] MEDS ORDERED: PANTOPRAZOLE 40 MG TABLET.DR PO SCH (07:30)
[2016-11-08 08:00] VITALS: BP 149/88
[2016-11-08 08:14] LABS: CALCIUM, SERUM 8.2 mg/dL (8.5-10.1); CREATININE 0.5 mg/dL (0.6-1.3); POTASSIUM 3.6 mmol/L (3.5-5.1)
[2016-11-08] MEDS: FLUOXETINE HCL 20 MG CAPSULE PO SCH (08:30)
[2016-11-08] MEDS: clonazePAM 0.5 MG TABLET PO PRN (08:30)
[2016-11-08] MEDS: SOLIFENACIN SUCCINATE 5 MG TABLET PO SCH (08:30)
[2016-11-08] MEDS: GABAPENTIN 300 MG CAPSULE PO SCH (08:30)
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
[2016-11-08] MEDS: UREA 10% -AHA 4% CREAM 57 GM TUBE TP SCH (08:33)
[2016-11-08] MEDS: NEOMY SULF/BACITRAC ZN/POLY 15 GM TUBE TP SCH (08:36)
[2016-11-08] MEDS ORDERED: INVEST MED MK-8189 MISC 1 CAP EA PO SCH (09:00)
[2016-11-08] MEDS ORDERED: INVEST MED MK-8189 MISC 2 TAB EA PO SCH (09:00)
[2016-11-08] MEDS ORDERED: INVEST MED MK-8189 MISC 1 TAB EA PO SCH (09:00)
[2016-11-08] MEDS ORDERED: INVEST MED MK-8189 MISC 3 CAP EA PO SCH (09:00)
[2016-11-08] MEDS ORDERED: INVEST MED MK-8189 MISC 2 CAP EA PO SCH (09:00)
[2016-11-08] MEDS ORDERED: INVEST MED MK-8189 MISC 3 TAB EA PO SCH (09:00)
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
--- NOTE | 2016-11-08 09:20 | NUR ---
PRECISION OPTICAL GOODS WORKER AND LISSY ELECTRO TECH INFORMED ABOUT PT'S BEHAVIOR AND REQUEST OF SHOWER, ELECTRO TECH STATED THAT HE WILL VISIT PT SOON.
--- NOTE | 2016-11-08 09:30 | NUR ---
PT STANDING IN HALLWAY AND OMAR:" BRING ME MY MEDICATIONS FROM PHARMACY I'M GOING HOME NOW, I DO NOT NEED SHOWER, AND CALL TAXI!"
--- NOTE | 2016-11-08 09:35 | NUR ---
PT'S MEDICATIONS FROM PHARMACY 2 BAGS GIVEN TO PT, AMA FORM SIGHED, WHEN I TRIED TO DISCUSS AMA RISKS AND BENEFITS SHE REFUSED TO LISTEN AND WALKED AWAY WITH FWW HOLDING HER BELONGINGS, NO S/S OF PAIN OR DISTRESS NOTED, AMBULATES WITH FWW WITHOUT DIFFICULTY, TAXI CALLED PER HER REQUEST, PT LEFT UNIT SAFELY.
--- NOTE | 2016-11-08 11:34 | NUR ---
RECEIVED CALL FROM [facility] ER NURSE, STATING THAT PT IS IN ER. AMA STATUS DISCUSSED WITH NURSE AND ALL QUESTIONS ANSWERED.
== END 2016-11-08 09:35 | disposition left against medical advice (07) | DRG 871 ==
LOC: ER 21:24 → ICU 23:59 → MEDSG2 11-07 18:22
PROVIDERS: ADMIT Internal Medicine; ATTEND Internal Medicine
PROC: 5A1945Z Respiratory Ventilation, 24-96 Consecutive Hours (ICD-10-PCS; principal; 2016-11-05)
PROC: 0BH17EZ Insertion of Endotracheal Airway into Trachea, Via Natural or Artificial Opening (ICD-10-PCS; 2016-11-05)
DX: A41.9 Sepsis, unspecified organism (principal); J96.02 Acute respiratory failure with hypercapnia; G92 Toxic encephalopathy; J18.9 Pneumonia, unspecified organism; F33.1 Major depressive disorder, recurrent, moderate; E87.1 Hypo-osmolality and hyponatremia; L97.419 Non-pressure chronic ulcer of right heel and midfoot with unspecified severity; F41.9 Anxiety disorder, unspecified; M19.90 Unspecified osteoarthritis, unspecified site; I10 Essential (primary) hypertension; Z96.659 Presence of unspecified artificial knee joint; Z96.649 Presence of unspecified artificial hip joint; Z59.0 Homelessness; T42.4X1A Poisoning by benzodiazepines, accidental (unintentional), initial encounter; D63.8 Anemia in other chronic diseases classified elsewhere; T45.0X1A Poisoning by antiallergic and antiemetic drugs, accidental (unintentional), initial encounter
CPT/HCPCS: 31720; 36415; 36600; 71010-TC; 80048-TC; 80076-TC; 80305; 81000-TC; 83605-TC; 83735-TC; 84100-TC; 84484-TC; 85025-TC; 87081-TC; 93307-TC; 94002-TC; 94003-TC; 94799-TC; A4606; C9113; G0480; G6039-TC; J1650; J2270; J3490; J7030; J7040; Z7610

== ENCOUNTER 2016-11-22 15:42 | Emergency (ER) | payer MEDICARE, MEDICAID ==
[~2016-11-22] VITALS: Ht 152.4 cm; Wt 45.4 kg
[~2016-11-22 15:42] MED LIST changes: -ACET-2605 PO; -CEPH-570 PO; -CLON2TAB3 PO; -DIPH25CA83 PO; +METH10TA2 PO; -NAPR375T3 PO
--- NOTE | 2016-11-22 15:55 | NUR ---
PT AMBULATORY W/ A WALKER TO ER BED 12 C/O LT ELBOW AND RT KNEE PAIN. SWELLING TO RT ELBOW NOTED. PT SEEN IN ER MULTIPLE TIMES. GOWNED AND PLACED ON MONITOR. STABLE VITALS. AWAITING MD PRIETO.
--- NOTE | 2016-11-22 16:26 | NUR ---
DELIO AMAYA AT BEDSIDE FOR EVAL.
--- NOTE | 2016-11-22 16:28 | NUR ---
IV LINE STARTD BLOOD DRAWN AND SENT TO LAB.
[2016-11-22] MEDS ORDERED: IV NS 0.9% 500 ML IV ONE (16:30)
[2016-11-22] MEDS ORDERED: IV NS 0.9% 500 ML BAG IV ONE (16:30)
[2016-11-22] MEDS ORDERED: diphenhydrAMINE HCL 50 MG/ML VIAL IV ONE (16:30)
[2016-11-22] MEDS ORDERED: IV SET PRIMARY 1 EA INFUS.SET MC ONE (16:30)
[2016-11-22 16:32] LABS: BASOPHILS % (AUTO) 0.6 % (0.0-2.0); EOSINOPHILS # (AUTO) 0.3 /CMM (0.0-0.7); EOSINOPHILS % (AUTO) 4.1 % (0.0-6.0); HEMATOCRIT 33 % (33-45); LYMPHOCYTES # (AUTO) 1.6 /CMM (0.8-4.8); LYMPHOCYTES % (AUTO) 22.8 % (20.0-44.0); MEAN CORPUSCULAR HEMOGLOBIN 27 PG (26.0-33.0); MEAN CORPUSCULAR HGB CONC 34 g/dl (31.0-36.0); MEAN CORPUSCULAR VOLUME 80 fL (82-100); MONOCYTES # (AUTO) 0.5 /CMM (0.1-1.30); MONOCYTES % (AUTO) 7.4 % (2.0-12.0); NEUTROPHILS # (AUTO) 4.5 /CMM (1.8-8.9); NEUTROPHILS % (AUTO) 65.1 % (43.0-81.0); PLATELET COUNT (AUTO) 316 /CMM (150-450); RDW COEFFICIENT OF VARIATION 17.8 (11.5-15.0); RED BLOOD CELL COUNT(AUTO) 4.08 MIL/uL (4.0-5.2); WHITE BLOOD COUNT (AUTO) 6.9 K/uL (4.3-11.0)
--- NOTE | 2016-11-22 16:40 | NUR ---
PT TO RADIOLOGY FOR LT KNEE AND RT SIDE RIB AREA XRAY.
[2016-11-22 16:42] LABS: CALCIUM, SERUM 8.5 mg/dL (8.5-10.1); CREATININE 0.7 mg/dL (0.6-1.3)
[2016-11-22 17:35] LABS: APPEARANCE,URINE Clear (CLEAR); BILIRUBIN,URINE Negative (NEGATIVE); BLOOD, URINE Trace-intact Ery/uL (NEGATIVE); COLOR,URINE Yellow (YELLOW); KETONES,URINE Negative (NEGATIVE); LEUKOCYTE ESTERASE ,URINE Negative (NEGATIVE); NITRITE, URINE Negative (NEGATIVE); PROTEIN,URINE Negative (NEGATIVE); UGLUCOSE Negative (NEGATIVE); UROBILINOGEN,URINE 0.2 EU/dL (0.2)
[2016-11-22 17:42] LABS: ADD URINE CULTURE NO; BACTERIA,URINE Rare /HPF (None Seen); SQUAMOUS EPITHELIAL CELL,UR Few /HPF (None Seen); WBC,URINE NONE SEEN /HPF (0-3)
--- NOTE | 2016-11-22 19:34 | NUR ---
CALLED MATTHIAS TO READ XRAY
--- NOTE | 2016-11-22 20:46 | NUR ---
Patient discharged to home in stable condition. Written and verbal after care instructions given. Patient verbalizes understanding of instruction.IV removed. Catheter intact and site benign. Pressure and 4x4 applied to site. No bleeding noted.
[2016-11-22 20:47] VITALS: BP 121/68
== END 2016-11-22 20:47 | disposition home or self-care (01) ==
LOC: ER 15:47
DX: S20.211A Contusion of right front wall of thorax, initial encounter (principal); M25.562 Pain in left knee; M25.422 Effusion, left elbow; G89.29 Other chronic pain; F17.200 Nicotine dependence, unspecified, uncomplicated; F32.9 Major depressive disorder, single episode, unspecified; Z88.8 Allergy status to other drugs, medicaments and biological substances; Z88.6 Allergy status to analgesic agent; W18.39XA Other fall on same level, initial encounter; Y93.89 Activity, other specified; Y92.89 Other specified places as the place of occurrence of the external cause; Y99.9 Unspecified external cause status
CPT/HCPCS: 36415; 71100; 73560; 80048; 81001; 85025; 99285; A4606; J7040; 81000-TC; Z7610

== ENCOUNTER 2016-11-23 10:02 | Emergency (ER) | payer MEDICARE, MEDICAID ==
[~2016-11-23] VITALS: Ht 152.4 cm; Wt 45.4 kg
[2016-11-23 10:15] VITALS: BP 126/79
== END 2016-11-23 12:13 | disposition home or self-care (01) ==
LOC: ER 10:06
DX: M71.322 Other bursal cyst, left elbow (principal); T81.4XXA Infection following a procedure, initial encounter; G89.4 Chronic pain syndrome; F32.9 Major depressive disorder, single episode, unspecified; F17.200 Nicotine dependence, unspecified, uncomplicated; Z96.659 Presence of unspecified artificial knee joint; Z88.6 Allergy status to analgesic agent; Z88.8 Allergy status to other drugs, medicaments and biological substances
CPT/HCPCS: 99284; A4606; Z7610

== ENCOUNTER 2016-11-26 10:41 | Emergency (ER) | payer MEDICARE, MEDICAID ==
[~2016-11-26] VITALS: Ht 152.4 cm; Wt 45.4 kg
--- NOTE | 2016-11-26 11:11 | NUR ---
PT BIB RA C/O "PAIN EVERYWHERE SINCE I GOT HERE" AND "I JUST DON'T FEEL RIGHT". PT SLEEPY BUT EASILY AROUSABLE TO VERBAL STIMULUS. NAD NOTED. RESP EVEN UNLABORED, PLACED ON 2LPM O2 VIA NC FOR SUPPORT. SKIN WARM NONDIAPHORETIC. IN ER BED 11 ON MONITOR.
--- NOTE | 2016-11-26 12:39 | NUR ---
IRINEO MOSS AT BEDSIDE. TRIAL OFF OXYGEN SHOWED DESAT TO 91%. RESUMED ON 2LPM VIA NC.
[2016-11-26 12:49] LABS: BASOPHILS % (AUTO) 0.6 % (0.0-2.0); EOSINOPHILS # (AUTO) 0.2 /CMM (0.0-0.7); EOSINOPHILS % (AUTO) 3.5 % (0.0-6.0); HEMATOCRIT 29 % (33-45); HEMOGLOBIN 9.7 g/dL (11.5-14.8); LYMPHOCYTES # (AUTO) 1.5 /CMM (0.8-4.8); LYMPHOCYTES % (AUTO) 31.5 % (20.0-44.0); MEAN CORPUSCULAR HEMOGLOBIN 26 PG (26.0-33.0); MEAN CORPUSCULAR HGB CONC 33 g/dl (31.0-36.0); MEAN CORPUSCULAR VOLUME 79 fL (82-100); MONOCYTES # (AUTO) 0.4 /CMM (0.1-1.30); MONOCYTES % (AUTO) 7.5 % (2.0-12.0); NEUTROPHILS # (AUTO) 2.6 /CMM (1.8-8.9); NEUTROPHILS % (AUTO) 56.9 % (43.0-81.0); PLATELET COUNT (AUTO) 306 /CMM (150-450); RDW COEFFICIENT OF VARIATION 17.6 (11.5-15.0); WHITE BLOOD COUNT (AUTO) 4.7 K/uL (4.3-11.0)
--- NOTE | 2016-11-26 12:51 | NUR ---
PT AMBULATED TO RESTROOM INDEPENDENTLY WITH WALKER. EMT AT BEDSIDE FOR EKG; WILL NOTIFY WHEN PT RETURNED TO ER BED.
[2016-11-26 12:59] LABS: CALCIUM, SERUM 8.4 mg/dL (8.5-10.1); CARBON DIOXIDE 32 mmol/L (21-32); CHLORIDE 103 mmol/L (98-107); CREATININE 0.6 mg/dL (0.6-1.3); GFR 102 mL/min (>60); GLUCOSE 88 mg/dL (74-106); POTASSIUM 3.4 mmol/L (3.5-5.1); SODIUM SERUM 139 mmol/L (136-145); UREA NITROGEN, BLOOD 11 mg/dL (7-18)
[2016-11-26] MEDS ORDERED: ACETAMINOPHEN 325 MG TABLET ONE (13:00)
[2016-11-26] MEDS ORDERED: IV NS 0.9% 1,000 ML BAG IV ONE (13:00)
[2016-11-26] MEDS ORDERED: ACETAMINOPHEN 325 MG TABLET PO ONE (13:00)
[2016-11-26] MEDS ORDERED: IV NS 0.9% 1,000 ML ONE (13:01)
[2016-11-26] MEDS ORDERED: IV SET PRIMARY 1 EA INFUS.SET MC ONE (13:01)
--- NOTE | 2016-11-26 13:01 | NUR ---
EMT AT BEDSIDE FOR EKG
[2016-11-26 13:04] LABS: ACETAMINOPHEN 1 ug/ml (10-30); ALANINE AMINOTRANSFERASE 15 U/L (12-78); ALBUMIN 3.3 g/dL (3.4-5.0); ALCOHOL, BLOOD < 3 mg/dL (0-0); ALKALINE PHOSPHATASE 75 U/L (46-116); ASPARTATE AMINOTRANSFERASE 19 U/L (15-37); BILIRUBIN,DIRECT 0.1 mg/dL (0.0-0.2); BILIRUBIN,TOTAL 0.3 mg/dL (0.2-1.0)
[2016-11-26 13:05] LABS: APPEARANCE,URINE Clear (CLEAR); BILIRUBIN,URINE Negative (NEGATIVE); BLOOD, URINE Negative Ery/uL (NEGATIVE); COLOR,URINE Yellow (YELLOW); KETONES,URINE Negative (NEGATIVE); LEUKOCYTE ESTERASE ,URINE Negative (NEGATIVE); NITRITE, URINE Negative (NEGATIVE); PROTEIN,URINE Negative (NEGATIVE); UGLUCOSE Negative (NEGATIVE); UROBILINOGEN,URINE 0.2 EU/dL (0.2)
[2016-11-26 13:09] LABS: LACTIC ACID 0.7 mmol/L (0.4-2.0)
[2016-11-26 13:19] LABS: CANNABINOID, URINE NEGATIVE (NEGATIVE); PHENCYCLIDINE SCREEN,URINE NEGATIVE (NEGATIVE)
--- NOTE | 2016-11-26 13:57 | NUR ---
Patient is resting comfortably in bed with eyes closed. Easily aroused. VSS
--- NOTE | 2016-11-26 17:33 | NUR ---
PT RESTING COMFORTABLY, ALL NEEDS ATTENDED TO. Addendum: 11/26/16 at 1734 by HFOX PT ASLEEP BUT EASILY ASOURABLE. PT APPEARS SOMEWHAT MORE ALERT THAN ON PRESENTATION BUT REMAINS VERY "TIRED" PER PT. AMBULATED TO RESTROOM WITH GAIT AT BASELINE, USING WALKER, MULTIPLE TIMES.
--- NOTE | 2016-11-26 18:54 | NUR ---
PT AWAKE, ALERT. RT AT BEDSIDE FOR ABG. PT IS YELLING AT RT AND SPEAKING VERY RUDELY TO RT AND MYSELF.
[2016-11-26 18:57] VITALS: BP 112/67
[2016-11-26 19:27] LABS: ABG BASE EXCESS -1.3 mmol/L; ABG OXYGEN SATURATION 92.8 % (92.0-98.5); ABG PCO2 44.6 mmHg (35.0-45.0); ABG PH 7.354 (7.350-7.450); ABG PO2 71.8 mmHg (75.0-100.0); ABG TOTAL HEMOGLOBIN 10.6 G/dL (12.0-16.0); AaDO2 24.5 mmHg; COHb 2.2 % (0.5-1.5); MetHb 0.3 % (0.0-1.5); O2Hb 90.5 % (94.0-97.0); SITE, ABG Right Radial; VENT MODE, BG Room Air
--- NOTE | 2016-11-26 19:33 | NUR ---
PT DISACHRGED. YELLING AT STAFF, UNCOOPERATIVE, ATTEMPTING TO HIT STAFF. PT REFUSED TO SIGN DISCHARGE. Addendum: 11/26/16 at 1936 by HFOX REFUSED DISCHARGE VITALS. AMBULATED WITH WALKER, AT BASELINE, OUT OF ER.
== END 2016-11-26 19:38 | disposition home or self-care (01) ==
LOC: EDUNIT# 10:41 → ER 10:48
DX: M70.22 Olecranon bursitis, left elbow (principal); F11.10 Opioid abuse, uncomplicated; J44.9 Chronic obstructive pulmonary disease, unspecified; G89.29 Other chronic pain; F17.200 Nicotine dependence, unspecified, uncomplicated; F32.9 Major depressive disorder, single episode, unspecified; Z96.659 Presence of unspecified artificial knee joint; Z88.6 Allergy status to analgesic agent; Z88.8 Allergy status to other drugs, medicaments and biological substances
CPT/HCPCS: 36415; 36600; 71010; 80048; 80076; 80305; 80329; 81001; 83605; 85025; 87040 ×2; 93005; 96360; 99285; 99406; A4606; G0480 ×2; J7030; 81000-TC; G6039-TC; Z7610

== ENCOUNTER 2016-12-01 12:38 | Emergency (ER) | payer MEDICARE, MEDICAID ==
[~2016-12-01] VITALS: Ht 149.9 cm; Wt 45.4 kg
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
--- NOTE | 2016-12-01 13:34 | NUR ---
Patient discharged to home in stable condition. Written and verbal after care instructions given; pt refused to sign. ambulated with walker.
[2016-12-01 13:36] VITALS: BP 105/60
== END 2016-12-01 13:36 | disposition home or self-care (01) ==
LOC: ER 12:40
DX: T39.91XA Poisoning by unspecified nonopioid analgesic, antipyretic and antirheumatic, accidental (unintentional), initial encounter (principal); G89.4 Chronic pain syndrome; F32.9 Major depressive disorder, single episode, unspecified; F17.200 Nicotine dependence, unspecified, uncomplicated; Z98.890 Other specified postprocedural states; Z88.8 Allergy status to other drugs, medicaments and biological substances; Z88.6 Allergy status to analgesic agent; Y92.9 Unspecified place or not applicable
CPT/HCPCS: A4606; Z7610

== ENCOUNTER 2016-12-07 14:36 | Emergency (ER) | payer MEDICARE, MEDICAID ==
[~2016-12-07] VITALS: Ht 149.9 cm; Wt 57.2 kg
[2016-12-07 14:39] VITALS: BP 126/82
[2016-12-07] MEDS ORDERED: MORPHINE SULFATE INJ 4 MG/ML DISP.SYRIN ONE (16:12)
[2016-12-07] MEDS ORDERED: MORPHINE SULFATE INJ 2 MG/ML DISP.SYRIN SQ ONE (16:30)
[2016-12-07] MEDS ORDERED: ONDANSETRON 4 MG TAB.RAPDIS ONE (17:25)
[2016-12-07] MEDS ORDERED: ONDANSETRON 4 MG TAB.RAPDIS SL ONE (17:30)
== END 2016-12-07 17:39 | disposition home or self-care (01) ==
LOC: ER 14:37
DX: S59.901A Unspecified injury of right elbow, initial encounter (principal); M70.22 Olecranon bursitis, left elbow; G89.4 Chronic pain syndrome; F17.200 Nicotine dependence, unspecified, uncomplicated; F32.9 Major depressive disorder, single episode, unspecified; Z88.6 Allergy status to analgesic agent; Z88.8 Allergy status to other drugs, medicaments and biological substances; W01.198A Fall on same level from slipping, tripping and stumbling with subsequent striking against other object, initial encounter; Y93.89 Activity, other specified; Y92.89 Other specified places as the place of occurrence of the external cause; Y99.9 Unspecified external cause status
CPT/HCPCS: 73070; 73080; 96372; 99284; A4606; J2270; Q0162; Z7610

== ENCOUNTER 2016-12-09 10:13 | Emergency (ER) | payer MEDICARE, MEDICAID ==
[~2016-12-09] VITALS: Ht 152.4 cm; Wt 45.4 kg
[2016-12-09 10:25] VITALS: BP 109/57
== END 2016-12-09 12:22 | disposition home or self-care (01) ==
LOC: ER 10:14
DX: S50.02XA Contusion of left elbow, initial encounter (principal); G89.4 Chronic pain syndrome; F32.9 Major depressive disorder, single episode, unspecified; F17.200 Nicotine dependence, unspecified, uncomplicated; F11.20 Opioid dependence, uncomplicated; Z88.8 Allergy status to other drugs, medicaments and biological substances; Z88.5 Allergy status to narcotic agent; W18.30XA Fall on same level, unspecified, initial encounter; Y93.01 Activity, walking, marching and hiking; Y92.89 Other specified places as the place of occurrence of the external cause; Y99.8 Other external cause status
CPT/HCPCS: 73080-TC; A4606; Z7610

== ENCOUNTER 2016-12-12 18:37 | Emergency (ER) | payer MEDICARE, MEDICAID ==
[~2016-12-12] VITALS: Ht 147.3 cm; Wt 49.9 kg
[2016-12-12 18:53] VITALS: BP 147/83
== END 2016-12-12 21:08 | disposition home or self-care (01) ==
LOC: ER 18:40
DX: M25.552 Pain in left hip (principal); G89.29 Other chronic pain; F32.9 Major depressive disorder, single episode, unspecified; W18.39XA Other fall on same level, initial encounter; Y93.89 Activity, other specified; Y92.89 Other specified places as the place of occurrence of the external cause; Y99.8 Other external cause status
CPT/HCPCS: 73510-TC; A4606; Z7610

== ENCOUNTER 2016-12-19 19:20 | Emergency (ER) | payer MEDICARE, MEDICAID | END 2016-12-19 20:04 | disposition left against medical advice (07) | LOC: ER 19:21 | DX: F32.9 Major depressive disorder, single episode, unspecified (principal); G89.4 Chronic pain syndrome; F17.200 Nicotine dependence, unspecified, uncomplicated; Z76.5 Malingerer [conscious simulation]; Z88.6 Allergy status to analgesic agent; Z88.8 Allergy status to other drugs, medicaments and biological substances ==

== ENCOUNTER 2016-12-21 19:23 | Emergency (ER) | payer MEDICARE, MEDICAID ==
[~2016-12-21] VITALS: Ht 152.4 cm; Wt 49.9 kg
[2016-12-21 19:25] VITALS: BP 138/68
[2016-12-21] MEDS ORDERED: ACETAMINOPHEN 325 MG TABLET ONE (19:42)
[2016-12-21] MEDS ORDERED: ACETAMINOPHEN 325 MG TABLET PO ONE (20:00)
[2016-12-21 21:31] LABS: BASOPHILS % (AUTO) 0.3 % (0.0-2.0); EOSINOPHILS # (AUTO) 0.2 /CMM (0.0-0.7); EOSINOPHILS % (AUTO) 1.5 % (0.0-6.0); HEMATOCRIT 32 % (33-45); HEMOGLOBIN 10.2 g/dL (11.5-14.8); LYMPHOCYTES # (AUTO) 1.3 /CMM (0.8-4.8); LYMPHOCYTES % (AUTO) 10.1 % (20.0-44.0); MEAN CORPUSCULAR HEMOGLOBIN 26 PG (26.0-33.0); MEAN CORPUSCULAR HGB CONC 32 g/dl (31.0-36.0); MEAN CORPUSCULAR VOLUME 80 fL (82-100); MONOCYTES # (AUTO) 0.5 /CMM (0.1-1.30); MONOCYTES % (AUTO) 4.3 % (2.0-12.0); NEUTROPHILS # (AUTO) 10.7 /CMM (1.8-8.9); NEUTROPHILS % (AUTO) 83.8 % (43.0-81.0); PLATELET COUNT (AUTO) 376 /CMM (150-450); RDW COEFFICIENT OF VARIATION 16.7 (11.5-15.0); RED BLOOD CELL COUNT(AUTO) 3.97 MIL/uL (4.0-5.2); WHITE BLOOD COUNT (AUTO) 12.8 K/uL (4.3-11.0)
[2016-12-21 21:48] LABS: ALBUMIN 3.1 g/dL (3.4-5.0); BILIRUBIN,DIRECT 0.1 mg/dL (0.0-0.2); BILIRUBIN,TOTAL 0.3 mg/dL (0.2-1.0); CALCIUM, SERUM 8.1 mg/dL (8.5-10.1); CREATININE 0.7 mg/dL (0.6-1.3); POTASSIUM 3.5 mmol/L (3.5-5.1); TOTAL PROTEIN, SERUM 6.5 g/dL (6.4-8.2)
[2016-12-21 23:28] LABS: HYPOCHROMASIA 1+; PLATELET ESTIMATE ADEQUATE
== END 2016-12-21 22:42 | disposition home or self-care (01) ==
LOC: ER 19:24
DX: S80.212A Abrasion, left knee, initial encounter (principal); R10.30 Lower abdominal pain, unspecified; M70.22 Olecranon bursitis, left elbow; G89.4 Chronic pain syndrome; D64.9 Anemia, unspecified; F32.9 Major depressive disorder, single episode, unspecified; F17.200 Nicotine dependence, unspecified, uncomplicated; Z72.0 Tobacco use; Z88.6 Allergy status to analgesic agent; Z88.8 Allergy status to other drugs, medicaments and biological substances; W18.39XA Other fall on same level, initial encounter; Y93.89 Activity, other specified; Y92.89 Other specified places as the place of occurrence of the external cause; Y99.9 Unspecified external cause status
CPT/HCPCS: 36415; 73564-TC; 74000-TC; 80048-TC; 80076-TC; 85025-TC; A4606; Z7610

== ENCOUNTER 2016-12-28 16:32 | Emergency (ER) | payer MEDICARE, MEDICAID ==
[~2016-12-28] VITALS: Ht 154.9 cm; Wt 49.9 kg
[2016-12-28 16:32] VITALS: BP 113/62
[2016-12-28] MEDS ORDERED: IBUPROFEN 200 MG TABLET ONE (16:41)
[2016-12-28] MEDS ORDERED: IBUPROFEN 400 MG TABLET PO ONE (17:00)
== END 2016-12-28 17:25 | disposition home or self-care (01) ==
LOC: ER 16:36
DX: S80.02XA Contusion of left knee, initial encounter (principal); M25.562 Pain in left knee; F32.9 Major depressive disorder, single episode, unspecified; F17.210 Nicotine dependence, cigarettes, uncomplicated; G89.4 Chronic pain syndrome; W01.0XXA Fall on same level from slipping, tripping and stumbling without subsequent striking against object, initial encounter; Y92.89 Other specified places as the place of occurrence of the external cause; Y93.89 Activity, other specified; Y99.8 Other external cause status
CPT/HCPCS: 73560; 99284; A4606; Z7610

== ENCOUNTER 2017-01-08 23:14 | Emergency (ER) | payer MEDICARE, MEDICAID ==
[~2017-01-08] VITALS: Ht 154.9 cm; Wt 49.9 kg
[2017-01-08] MEDS ORDERED: IV SET PRIMARY 1 EA INFUS.SET MC ONE (23:34)
[2017-01-08] MEDS ORDERED: IV NS 0.9% 1,000 ML ONE (23:34)
--- NOTE | 2017-01-08 23:46 | NUR ---
PT BIB RA C/O N/V/D X5 DAYS WITH MILD ABD PAIN. PT APPEARS DEHYDRATED, DRY ORAL MUCOSA. RESP EVEN UNLABORED. APPEARS SLEEPY BUT EASILY AROUSABLE TO VOICE. NOTED WITH CHRONIC L ELBOW BURSITIS. NAD NOTED. IN ER BED 12 ON MONITOR.
[2017-01-08 23:51] LABS: BASOPHILS # (AUTO) 0.1 /CMM (0.0-0.2); BASOPHILS % (AUTO) 0.9 % (0.0-2.0); EOSINOPHILS # (AUTO) 0.2 /CMM (0.0-0.7); EOSINOPHILS % (AUTO) 2.5 % (0.0-6.0); HEMATOCRIT 29 % (33-45); HEMOGLOBIN 9.5 g/dL (11.5-14.8); LYMPHOCYTES # (AUTO) 1.6 /CMM (0.8-4.8); LYMPHOCYTES % (AUTO) 25.1 % (20.0-44.0); MEAN CORPUSCULAR HEMOGLOBIN 25 PG (26.0-33.0); MEAN CORPUSCULAR HGB CONC 33 g/dl (31.0-36.0); MEAN CORPUSCULAR VOLUME 78 fL (82-100); MONOCYTES # (AUTO) 0.5 /CMM (0.1-1.30); MONOCYTES % (AUTO) 8.6 % (2.0-12.0); NEUTROPHILS # (AUTO) 3.9 /CMM (1.8-8.9); NEUTROPHILS % (AUTO) 62.9 % (43.0-81.0); PLATELET COUNT (AUTO) 295 /CMM (150-450); RDW COEFFICIENT OF VARIATION 15.9 (11.5-15.0); RED BLOOD CELL COUNT(AUTO) 3.74 MIL/uL (4.0-5.2); WHITE BLOOD COUNT (AUTO) 6.2 K/uL (4.3-11.0)
[2017-01-09] LABS: CALCIUM, SERUM 8.2 mg/dL (8.5-10.1); CREATININE 0.6 mg/dL (0.6-1.3); POTASSIUM 3.3 mmol/L (3.5-5.1)
[2017-01-09] MEDS ORDERED: IV NS 0.9% 1,000 ML BAG IV ONE
--- NOTE | 2017-01-09 | NUR ---
PT REPORTS SHE CANNOT URINATE AT THIS TIME. AWARE.
[2017-01-09 00:03] LABS: INR 0.95 (0.87-1.13); PROTHROMBIN TIME 10.1 SECS (9.5-12.7)
--- NOTE | 2017-01-09 00:58 | NUR ---
Patient is resting comfortably in bed with eyes closed. Easily aroused. VSS
--- NOTE | 2017-01-09 02:47 | NUR ---
PROVIDED WITH APPLE JUICE.
[2017-01-09 03:04] VITALS: BP 103/59
--- NOTE | 2017-01-09 03:05 | NUR ---
Patient discharged to home in stable condition. Written and verbal after care instructions given. Patient verbalizes understanding of instruction. IV removed. Catheter intact and site benign. Pressure and 4x4 applied to site. No bleeding noted. AMBULATORY WITH WALKER.
== END 2017-01-09 03:05 | disposition home or self-care (01) ==
LOC: ER 23:23
DX: R19.7 Diarrhea, unspecified (principal); M25.521 Pain in right elbow; G89.29 Other chronic pain; F32.9 Major depressive disorder, single episode, unspecified; Z88.8 Allergy status to other drugs, medicaments and biological substances; Z88.6 Allergy status to analgesic agent; F10.20 Alcohol dependence, uncomplicated; F17.210 Nicotine dependence, cigarettes, uncomplicated
CPT/HCPCS: 36415; 73080-TC; 80048-TC; 85025-TC; 85730-TC; A4606; J7030; Z7610

== ENCOUNTER 2017-02-28 17:54 | Emergency (ER) | payer MEDICARE, MEDICAID ==
[~2017-02-28] VITALS: Ht 147.3 cm; Wt 49.9 kg
[2017-02-28 17:54] VITALS: BP 143/92
== END 2017-02-28 20:07 | disposition home or self-care (01) ==
LOC: ER 17:57
DX: M25.552 Pain in left hip (principal); G89.4 Chronic pain syndrome; F32.9 Major depressive disorder, single episode, unspecified; F17.200 Nicotine dependence, unspecified, uncomplicated; Z88.8 Allergy status to other drugs, medicaments and biological substances; Z88.6 Allergy status to analgesic agent; Z98.890 Other specified postprocedural states
CPT/HCPCS: A4606; Z7502; Z7610

== ENCOUNTER 2017-03-03 01:17 | Inpatient (IN) | payer MEDICARE, MEDICAID ==
[~2017-03-03] VITALS: Ht 144.8 cm; Wt 49.0 kg
--- NOTE | 2017-03-03 02:05 | NUR ---
PT PRESENTED TO THE ER WITH A C/O LT HIP PAIN. PT AMBULATED TO BED #3 WITH A WALKER. PT THEN AMBULATED FROM THE END OF THE GURNEY TO THE GURNEY WITHOUT THE WALKER WITH A STEADY GAIT AND WITHOUT ASSISTANCE. PT IS STATING THAT SHE HAS CHRONIC BILATERAL KNEE PAIN AND LT HIP PAIN S/P FALL ON THURSDAY.
--- NOTE | 2017-03-03 02:11 | NUR ---
XRAY IS AT THE BEDSIDE.
[2017-03-03] MEDS ORDERED: KETOROLAC TROMETHAMINE INJ 30 MG/ML VIAL ONE (02:15)
[2017-03-03] MEDS ORDERED: oxyCODONE/APAP (5/325 MG) 1 UDTAB TABLET ONE ×2 (02:15→04:04)
--- NOTE | 2017-03-03 02:21 | NUR ---
XRAY IN PROGRESS AT THE BEDSIDE.
[2017-03-03] MEDS ORDERED: KETOROLAC TROMETHAMINE INJ 60 MG/2 ML VIAL IM ONE (02:30)
[2017-03-03] MEDS ORDERED: oxyCODONE/APAP (5/325 MG) 1 UDTAB TABLET PO ONE ×2 (02:30→04:00)
--- NOTE | 2017-03-03 03:25 | NUR ---
PT LEFT FOR CT VIA GURNEY.
--- NOTE | 2017-03-03 03:53 | NUR ---
PT USED THE CALL LIGHT AND C/O LT HIP PAIN. PT REQUESTED KLONOPIN AND PAIN MEDICATION. PT STATED THAT SHE TAKES 1 MG KLONOPIN AND HAS NOT HAD IT. DR. RAINEY NOTIFIED. NEW ORDERS GIVEN.
--- NOTE | 2017-03-03 03:53 | NUR ---
PT RETURNED FROM CT.
[2017-03-03] MEDS ORDERED: clonazePAM 1 MG TABLET PO ONE (04:00)
[2017-03-03] MEDS ORDERED: clonazePAM 1 MG TABLET ONE (04:03)
--- NOTE | 2017-03-03 04:04 | NUR ---
WENT TO GIVE PT THE MEDICATION AND PT WAS SLEEPING SOUNDLY. DR. RAINEY IS AWARE. HELD MEDICATION AT THIS TIME.
--- NOTE | 2017-03-03 04:48 | NUR ---
PT APPEARS TO BE SLEEPING SOUNDLY. PT WILL CONTINUE TO BE MONITORED.
[2017-03-03] MEDS ORDERED: IV NS 0.9% 1,000 ML IV PRN (05:02)
--- NOTE | 2017-03-03 05:06 | NUR ---
4 " JAISON BANDAGE APPLIED TO LT ELBOW.
--- NOTE | 2017-03-03 05:25 | NUR ---
CALLING REPORT TO BRIANA LANDERS .
--- NOTE | 2017-03-03 05:25 | NUR ---
PT IS VERY SLEEPY. 20G IV STARTED IN RT WRIST. BLOOD DRAWN AND SENT TO LAB.
[2017-03-03] MEDS ORDERED: HYDROCODONE/APAP 10/325MG 1 EA TABLET PO PRN (05:30)
[2017-03-03] MEDS ORDERED: HYDROCODONE/APAP 5/325MG 1 EACH TABLET PO PRN (05:30)
[2017-03-03] MEDS ORDERED: MAGNESIUM HYDROXIDE 30 ML UDC PO PRN (05:30)
[2017-03-03] MEDS ORDERED: MAG HYDROX/AL HYDROX/SIMETH 30 ML UDC PO PRN (05:30)
[2017-03-03] MEDS ORDERED: ACETAMINOPHEN 325 MG TABLET PO PRN (05:30)
[2017-03-03] MEDS ORDERED: ONDANSETRON HCL/PF 4 MG/2 ML VIAL IVP PRN (05:30)
[2017-03-03 05:31] LABS: BASOPHILS # (AUTO) 0.2 /CMM (0.0-0.2); BASOPHILS % (AUTO) 1.8 % (0.0-2.0); EOSINOPHILS # (AUTO) 0.1 /CMM (0.0-0.7); EOSINOPHILS % (AUTO) 1.3 % (0.0-6.0); HEMATOCRIT 31 % (33-45); HEMOGLOBIN 10.4 g/dL (11.5-14.8); LYMPHOCYTES # (AUTO) 2.3 /CMM (0.8-4.8); LYMPHOCYTES % (AUTO) 26.7 % (20.0-44.0); MEAN CORPUSCULAR HEMOGLOBIN 26 PG (26.0-33.0); MEAN CORPUSCULAR HGB CONC 33 g/dl (31.0-36.0); MEAN CORPUSCULAR VOLUME 77 fL (82-100); MONOCYTES # (AUTO) 0.6 /CMM (0.1-1.30); MONOCYTES % (AUTO) 7.2 % (2.0-12.0); NEUTROPHILS # (AUTO) 5.5 /CMM (1.8-8.9); PLATELET COUNT (AUTO) 365 /CMM (150-450); RDW COEFFICIENT OF VARIATION 18.1 (11.5-15.0); RED BLOOD CELL COUNT(AUTO) 4.07 MIL/uL (4.0-5.2); WHITE BLOOD COUNT (AUTO) 8.7 K/uL (4.3-11.0)
[2017-03-03 05:46] LABS: INR 0.99 (0.87-1.13); PROTHROMBIN TIME 10.6 SECS (9.5-12.7)
[2017-03-03 05:57] LABS: THYROID STIMULATING HORMONE 0.117 uIU/mL (0.358-3.74)
[2017-03-03 06:00] VITALS: BP 160/106
[2017-03-03 06:05] LABS: ALBUMIN 3.3 g/dL (3.4-5.0); BILIRUBIN,TOTAL 0.3 mg/dL (0.2-1.0); CALCIUM, SERUM 8.7 mg/dL (8.5-10.1); CREATININE 0.6 mg/dL (0.6-1.3); POTASSIUM 3.4 mmol/L (3.5-5.1); TOTAL PROTEIN, SERUM 6.5 g/dL (6.4-8.2)
[2017-03-03] MEDS ORDERED: HYDROCODONE/APAP 10/325MG 1 EA TABLET ONE (06:21)
--- NOTE | 2017-03-03 06:25 | NUR ---
ADMITTED A 61Y/O, F, A, OX4, VERY ANXIOUS AND COMBATIVE. NONCOOPERATIVE. W/ CONSTANT SCREAMING AND YELLING FOR NO APPARENT REASON. PT GOT OOB WITHOUT ASSISTANCE AND STARTED WALKING IN THE HALLWAY RIGHT AFTER SHE WAS BROUGHT IN TO THE UNIT FROM ER. REFUSED TO ANSWER TO ADMISSION AND ASSESSMENT QUESTIONS. MOST INFORMATIONS WERE OBTAINED FROM THE ER RECORDS. PT BARELY ALLOWED THE STAFF TO CHECK HER VS AND CONSTANTLY MOVING HER ARM DURING TAKING HER BP. W/ C/O PAIN ON L HIP PAIN AND REQUESTING FOR PAIN MEDICATIONS. PT REFUSED AND FOUGHT AGAINST THE BED ALARM. ALSO REFUSED BODY CHECK. SAFETY MEASURES AND FALL PRECAUTIONS WERE EXPLAINED TO THE PT. BED LOW LOCKED. CALL LIGHT WITHIN REACH,. WILL CONT TO MONITOR AND WILL F/U W/ MD'S ORDERS.
--- NOTE | 2017-03-03 06:53 | NUR ---
PT REFUSED IVF HYDRATION AT THIS TIME. NEEDS ATTENDED. CALL LIGHT WITHIN REACH. WILL CONT TO MONITOR AND WILL ENDORSE TO AM SHIFT FOR DANG.
--- NOTE | 2017-03-03 07:30 | NUR ---
m/s residential aide: initial assessment received pt sitting up in chair awake, a/ox4. pt refusing to be assessed, pt insisting to get her pain medication and if she can't i want my klonopin as stated. pt threatening to go out without signing any papers as stated. educated pt on left hip fracture and verbalized understanding, stated, "i know what i have, i can still walk on it, i just want my pain medication, and i don't want any surgery." cn aware. pt still insisting walking out. 1:1 intervention provided and encouraged to verbalized feelings. will continue to monitor.
--- NOTE | 2017-03-03 07:45 | NUR ---
m/s cryogenics engineer: notes pt up and about in unit using fww, pt loud, using foul language, and cursing to all staff she sees in unit. educated pt once more re: left hip fracture, pt got upset, stated, "don't give me that shit, i know i fell on my butt two days, i just want my pain medication." per moo (ancp) no iv medication per noc report and pt aware. will continue to monitor.
--- NOTE | 2017-03-03 07:58 | NUR ---
m/s groover and striper operator: cardio consult dr. marrero at bedside and discussed with pt re: dx and plan of care, but pt still refusing surgery. md aware and wants a pain management consult. order carried out and acknowledged. pt made aware. pt remains loud and verbally abusive to staff. pt still wants to go out without signing her papers when she leaves here as stated. 1:1 intervention provided prn. will continue to monitor.
[2017-03-03 08:00] VITALS: BP 137/92
--- NOTE | 2017-03-03 08:05 | NUR ---
m/s swimming instructor: notes left message to dr. bartholomew. (pain management) via voice mail re: consult. pt made aware, but still requesting for pain medications and still refuses surgery here. will continue to monitor.
--- NOTE | 2017-03-03 08:24 | NUR ---
m/s device processing engineer: notes pt continue to walk up and about in hallway and unit and threatening to go out and go to the cafeteria. pt still verbally abusive to staff. pt educated once more, but stopped me continuing, stated, "don't go there, i can do whatever i want." pt explained the risks without being seen by a physician and against the advice of dr. marrero (tag maker) and representatives of the hospital administration. pt has been told/educated about the risks and consequences involving in leaving the hospital at this time, the benefits of continued treatment and hospitalization, and the alternatives, if any, to continued treatment and hospitalization. pt is refusing all discharge instructions including but not limited to: activity, diet, follow up, discharge medications, and refusing referral to the next level of care provider. but pt agreed to sign the ama form and verbalized understanding of the risks and consequences of leaving the hospital at this time. h/l removed with tip intact. cn and mixing house operator aware.
--- NOTE | 2017-03-03 08:30 | NUR ---
m/s suzanna: notes dr. marrero here and aware that pt wants to go ama without being seen by (pmd) and against his (dr. marrero, ice cream chef) advice. pt left the hospital with all belongings and valuables using her fww accompanied by security. dr. hart notified and made aware. cn aware. Addendum: 03/03/17 at 1125 by DOT BARAJAS LVN pt refused to remove her arm band prior to discharge.
--- NOTE | 2017-03-03 08:38 | NUR ---
m/s laborer dairy farm: notes dr. segundo (pain management) notified and made aware re: pt signed ama, spoke to md's dental secretary and will relay message.
[2017-03-03] MEDS ORDERED: POTASSIUM CHLORIDE 20 MEQ POWDER PACKET PO SCH (09:30)
[2017-03-03] MEDS ORDERED: hydrALAZINE HCL 10 MG TABLET PO PRN (12:00)
[2017-03-03] MEDS ORDERED: METHADONE HCL 10 MG TABLET PO SCH (12:00)
[2017-03-03] MEDS ORDERED: FLUOXETINE HCL 20 MG/5 ML UDC PO SCH (12:00)
[2017-03-03] MEDS ORDERED: clonazePAM 1 MG TABLET PO SCH (13:00)
== END 2017-03-03 08:10 | disposition left against medical advice (07) | DRG 536 ==
LOC: ER 01:17 → TELE 05:19 → MED 05:45
PROVIDERS: ADMIT Nurse Practitioner Acute Care; ATTEND Nurse Practitioner Acute Care
DX: S72.112A Displaced fracture of greater trochanter of left femur, initial encounter for closed fracture (principal); F11.20 Opioid dependence, uncomplicated; F13.20 Sedative, hypnotic or anxiolytic dependence, uncomplicated; F41.9 Anxiety disorder, unspecified; G89.4 Chronic pain syndrome; F32.9 Major depressive disorder, single episode, unspecified; E87.6 Hypokalemia; D50.9 Iron deficiency anemia, unspecified; I10 Essential (primary) hypertension; W19.XXXA Unspecified fall, initial encounter; Y93.9 Activity, unspecified; Y92.009 Unspecified place in unspecified non-institutional (private) residence as the place of occurrence of the external cause; M19.90 Unspecified osteoarthritis, unspecified site; Z87.891 Personal history of nicotine dependence; Z96.659 Presence of unspecified artificial knee joint
CPT/HCPCS: 36415; 72170-TC; 73080-TC; 73502; 73564-TC; 73700-TC; 80053-TC; 80061-TC; 83735-TC; 84443-TC; 85025-TC; 85730-TC; 86850-TC; 87081-TC; A4606; J1885; Z7610

== ENCOUNTER 2017-03-03 12:38 | Emergency (ER) | payer MEDICARE, MEDICAID ==
[~2017-03-03] VITALS: Ht 149.9 cm; Wt 45.4 kg
[2017-03-03 12:51] VITALS: BP 102/67
--- NOTE | 2017-03-03 13:34 | NUR ---
PAGED ORTHO DR SIBLEY. [phone]
--- NOTE | 2017-03-03 14:04 | NUR ---
CALLED [facility] DR SIBLEY WAS REPAGED
[2017-03-03] MEDS ORDERED: HYDROCODONE/APAP 10/325MG 1 EA TABLET ONE (14:50)
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
[2017-03-03] MEDS: HYDROCODONE/APAP 10/325MG 1 EA TABLET PO ONE (14:52)
--- NOTE | 2017-03-03 14:59 | NUR ---
PT D/C. REFUSING TO SIGN ACI. LEFT ED. STABLE CONDITION.
== END 2017-03-03 15:02 | disposition home or self-care (01) ==
LOC: ER 12:39
DX: M25.552 Pain in left hip (principal); G89.29 Other chronic pain; Z88.6 Allergy status to analgesic agent; Z88.8 Allergy status to other drugs, medicaments and biological substances; Z98.890 Other specified postprocedural states
CPT/HCPCS: A4606; Z7610

== ENCOUNTER 2017-03-07 02:12 | Emergency (ER) | payer MEDICARE, MEDICAID ==
[~2017-03-07] VITALS: Ht 154.9 cm; Wt 49.9 kg
[2017-03-07 02:20] VITALS: BP 128/73
--- NOTE | 2017-03-07 02:26 | NUR ---
ONE CALL IN THE WAITING ROOM, NO ANSWER
== END 2017-03-07 02:43 | disposition home or self-care (01) ==
LOC: ER 02:15
DX: M25.569 Pain in unspecified knee (principal); G89.29 Other chronic pain; F17.200 Nicotine dependence, unspecified, uncomplicated; Z96.659 Presence of unspecified artificial knee joint; Z88.6 Allergy status to analgesic agent; Z88.8 Allergy status to other drugs, medicaments and biological substances
CPT/HCPCS: 99281; A4606; Z7502; Z7610

== ENCOUNTER 2017-03-10 00:31 | Emergency (ER) | payer MEDICARE, MEDICAID ==
[~2017-03-10] VITALS: Ht 127 cm; Wt 56.7 kg
[2017-03-10 00:31] VITALS: BP 116/55
[2017-03-10] MEDS ORDERED: IBUPROFEN 600 MG TABLET PO ONE ×2 (04:00→04:17)
== END 2017-03-10 05:59 | disposition home or self-care (01) ==
LOC: ER 00:32
DX: M25.552 Pain in left hip (principal); M25.551 Pain in right hip; M54.5 Low back pain; F17.200 Nicotine dependence, unspecified, uncomplicated; G89.29 Other chronic pain; Z88.6 Allergy status to analgesic agent; Z88.8 Allergy status to other drugs, medicaments and biological substances; W19.XXXA Unspecified fall, initial encounter; Y93.01 Activity, walking, marching and hiking; Y92.511 Restaurant or cafe as the place of occurrence of the external cause; Y99.8 Other external cause status
CPT/HCPCS: 72100; 72170; 73521; 99284; A4606; Z7610

== ENCOUNTER 2017-03-12 13:51 | Emergency (ER) | payer MEDICARE, MEDICAID ==
[~2017-03-12] VITALS: Ht 152.4 cm; Wt 49.4 kg
== END 2017-03-12 15:38 | disposition home or self-care (01) ==
LOC: ER 13:53
DX: F41.9 Anxiety disorder, unspecified (principal); Z76.0 Encounter for issue of repeat prescription; Z88.8 Allergy status to other drugs, medicaments and biological substances; Z88.6 Allergy status to analgesic agent; F17.200 Nicotine dependence, unspecified, uncomplicated
CPT/HCPCS: 99284; A4606

== ENCOUNTER 2017-03-14 03:40 | Emergency (ER) | payer MEDICARE, MEDICAID ==
[~2017-03-14] VITALS: Ht 154.9 cm; Wt 54.0 kg
[2017-03-14 04:30] VITALS: BP 150/91
[2017-03-14] MEDS ORDERED: IBUPROFEN 400 MG TABLET PO ONE (05:30)
== END 2017-03-14 05:23 | disposition home or self-care (01) ==
LOC: ER 03:45
DX: S93.602A Unspecified sprain of left foot, initial encounter (principal); G89.29 Other chronic pain; Z76.5 Malingerer [conscious simulation]; M19.90 Unspecified osteoarthritis, unspecified site; M85.80 Other specified disorders of bone density and structure, unspecified site; F17.200 Nicotine dependence, unspecified, uncomplicated; F41.9 Anxiety disorder, unspecified; Z98.890 Other specified postprocedural states; Z88.8 Allergy status to other drugs, medicaments and biological substances; X58.XXXA Exposure to other specified factors, initial encounter; Y93.89 Activity, other specified; Y92.9 Unspecified place or not applicable; Y99.9 Unspecified external cause status
CPT/HCPCS: 73610-TC; 73630-TC; A4606; Z7610

== ENCOUNTER 2017-03-14 19:06 | Emergency (ER) | payer MEDICARE, MEDICAID ==
[~2017-03-14] VITALS: Ht 152.4 cm; Wt 54.4 kg
[2017-03-14 19:26] VITALS: BP 136/78
--- NOTE | 2017-03-14 19:29 | NUR ---
PT LEFT BEOFRE GETTING HER ACI AND DISCHARGE INSTRUCTIONS
== END 2017-03-14 19:30 | disposition home or self-care (01) ==
LOC: ER 19:09
DX: Z76.5 Malingerer [conscious simulation] (principal); F41.9 Anxiety disorder, unspecified; G89.29 Other chronic pain; M19.90 Unspecified osteoarthritis, unspecified site; F17.200 Nicotine dependence, unspecified, uncomplicated; Z98.890 Other specified postprocedural states; Z88.8 Allergy status to other drugs, medicaments and biological substances
CPT/HCPCS: A4606; Z7502; Z7610

== ENCOUNTER 2017-03-16 15:58 | Emergency (ER) | payer MEDICARE, MEDICAID ==
[~2017-03-16] VITALS: Ht 160 cm; Wt 52.2 kg
[2017-03-16 16:00] VITALS: BP 131/75
== END 2017-03-16 16:23 | disposition home or self-care (01) ==
LOC: ER 16:00
DX: G89.29 Other chronic pain (principal); M79.672 Pain in left foot; M19.90 Unspecified osteoarthritis, unspecified site; F17.200 Nicotine dependence, unspecified, uncomplicated; F41.9 Anxiety disorder, unspecified; Z88.8 Allergy status to other drugs, medicaments and biological substances; Z88.6 Allergy status to analgesic agent
CPT/HCPCS: A4606; Z7610

== ENCOUNTER 2017-03-22 04:15 | Emergency (ER) | payer MEDICARE, MEDICAID ==
[~2017-03-22] VITALS: Ht 144.8 cm; Wt 54.4 kg
[2017-03-22 04:35] VITALS: BP 135/90
== END 2017-03-22 05:13 | disposition home or self-care (01) ==
LOC: ER 04:17
DX: M21.922 Unspecified acquired deformity of left upper arm (principal); G89.4 Chronic pain syndrome; M19.90 Unspecified osteoarthritis, unspecified site; F11.20 Opioid dependence, uncomplicated; F17.200 Nicotine dependence, unspecified, uncomplicated; F41.9 Anxiety disorder, unspecified; Z98.890 Other specified postprocedural states; Z88.6 Allergy status to analgesic agent; Z88.8 Allergy status to other drugs, medicaments and biological substances
CPT/HCPCS: A4606; Z7502; Z7610

== ENCOUNTER 2017-03-23 16:12 | Emergency (ER) | payer MEDICARE, MEDICAID ==
[~2017-03-23] VITALS: Ht 152.4 cm; Wt 44.9 kg
[2017-03-23 16:24] VITALS: BP 145/77
[2017-03-23] MEDS ORDERED: ACETAMINOPHEN 650 MG/20.3 ML UDC PO ONE (16:30)
[2017-03-23] MEDS ORDERED: ONDANSETRON 4 MG TAB.RAPDIS SL ONE (16:30)
[2017-03-23] MEDS ORDERED: ACETAMINOPHEN 325 MG TABLET ONE (16:35)
[2017-03-23] MEDS ORDERED: ONDANSETRON 4 MG TAB.RAPDIS ONE (16:36)
--- NOTE | 2017-03-23 16:43 | NUR ---
RADIOLOGY AT BEDSIDE FOR R FOOT XRAY.
--- NOTE | 2017-03-23 17:40 | NUR ---
CALLED [employer] UTILITY CLERK WAS PAGED.
[2017-03-23] MEDS ORDERED: IBUPROFEN 400 MG TABLET ONE (18:00)
--- NOTE | 2017-03-23 18:10 | NUR ---
PT STILL C/O PAIN. ERMD AWARE. MOTRIN 400MG GIVEN PER ERMD VERBAL ORDER. CARRIED OUT.
--- NOTE | 2017-03-23 18:16 | NUR ---
Patient discharged to home in stable condition. Written and verbal after care instructions given. Patient verbalizes understanding of instruction.
== END 2017-03-23 18:17 | disposition home or self-care (01) ==
LOC: ER 16:16
DX: S90.31XA Contusion of right foot, initial encounter (principal); M19.90 Unspecified osteoarthritis, unspecified site; Z88.5 Allergy status to narcotic agent; Z88.6 Allergy status to analgesic agent; Z88.8 Allergy status to other drugs, medicaments and biological substances; F17.200 Nicotine dependence, unspecified, uncomplicated; W22.03XA Walked into furniture, initial encounter; Y93.89 Activity, other specified; Y92.89 Other specified places as the place of occurrence of the external cause; Y99.8 Other external cause status
CPT/HCPCS: 73630-TC; A4606; Q0162; Z7610

== ENCOUNTER 2017-03-27 16:53 | Emergency (ER) | payer MEDICARE, MEDICAID ==
[~2017-03-27] VITALS: Ht 157.5 cm; Wt 61.2 kg
[2017-03-27 17:00] VITALS: BP 117/78
--- NOTE | 2017-03-27 17:26 | NUR ---
DR HERNANDEZ AT BEDSIDE FOR EVAL.
[2017-03-27] MEDS ORDERED: KETOROLAC TROMETHAMINE INJ 30 MG/ML VIAL IM ONE (17:30)
[2017-03-27] MEDS ORDERED: KETOROLAC TROMETHAMINE 15 MG/ML VIAL ONE (17:33)
== END 2017-03-27 18:06 | disposition home or self-care (01) ==
LOC: ER 17:02
DX: G57.93 Unspecified mononeuropathy of bilateral lower limbs (principal); G89.4 Chronic pain syndrome; M19.90 Unspecified osteoarthritis, unspecified site; F41.9 Anxiety disorder, unspecified; Z88.8 Allergy status to other drugs, medicaments and biological substances; F17.200 Nicotine dependence, unspecified, uncomplicated
CPT/HCPCS: 96372; 99283; A4606; J1885; Z7610

== ENCOUNTER 2017-03-27 20:54 | Emergency (ER) | payer MEDICARE, MEDICAID ==
--- NOTE | 2017-03-27 21:00 | NUR ---
CALLED PT NAME IN WR X3. NO RESPONSE.
--- NOTE | 2017-03-27 21:22 | NUR ---
CALLED PT NAME IN WR X3. NO RESPONSE.
--- NOTE | 2017-03-27 21:53 | NUR ---
CALLED PT NAME IN WR X3. NO RESPONSE.
--- NOTE | 2017-03-27 22:57 | NUR ---
CALLED PT NAME IN WR X3. NO RESPONSE.
--- NOTE | 2017-03-27 23:15 | NUR ---
CALLED PT NAME IN WR X3. PT STATES " I WANT TO SLEEP. LEAVE ME ALONE."
--- NOTE | 2017-03-28 | NUR ---
CALLED PT NAME IN WR X3. PT STATES " I WANT TO SLEEP. LEAVE ME ALONE." RISK AND BENEFITS EXPLAINED X 3. PT STRONGLY REFUSED.
--- NOTE | 2017-03-28 06:13 | NUR ---
CALLED PT NAME IN WR X3. NO RESPONSE. PER SECURITY PT LEFT.
== END 2017-03-28 06:17 | disposition left against medical advice (07) ==
LOC: ER 20:57
DX: Z53.21 Procedure and treatment not carried out due to patient leaving prior to being seen by health care provider (principal)

== ENCOUNTER 2017-04-02 14:20 | Emergency (ER) | payer MEDICARE, MEDICAID ==
[~2017-04-02] VITALS: Ht 152.4 cm; Wt 45.4 kg
[2017-04-02 14:20] VITALS: BP 134/77
[2017-04-02] MEDS ORDERED: clonazePAM 1 MG TABLET ONE (14:59)
[2017-04-02] MEDS: clonazePAM 1 MG TABLET PO ONE (15:01)
== END 2017-04-02 15:20 | disposition home or self-care (01) ==
LOC: ER 14:29
DX: F41.9 Anxiety disorder, unspecified (principal); Z88.8 Allergy status to other drugs, medicaments and biological substances; Z88.6 Allergy status to analgesic agent; F17.200 Nicotine dependence, unspecified, uncomplicated
CPT/HCPCS: A4606; Z7610

== ENCOUNTER 2017-04-04 09:25 | Emergency (ER) | payer MEDICARE, MEDICAID ==
[~2017-04-04] VITALS: Ht 152.4 cm; Wt 45.4 kg
--- NOTE | 2017-04-04 09:32 | NUR ---
CALLED TO TRIAGE, STS SHE'S NOT READY TO BE SEEN
[2017-04-04 10:11] VITALS: BP 167/92
[2017-04-04] MEDS ORDERED: clonazePAM 1 MG TABLET PO ONE (10:30)
[2017-04-04] MEDS ORDERED: ONDANSETRON 4 MG TAB.RAPDIS SL ONE (10:30)
[2017-04-04] MEDS ORDERED: clonazePAM 1 MG TABLET ONE (10:30)
[2017-04-04] MEDS ORDERED: ONDANSETRON 4 MG TAB.RAPDIS ONE (10:31)
--- NOTE | 2017-04-04 10:43 | NUR ---
Patient discharged to home in stable condition. Written and verbal after care instructions given. Patient verbalizes understanding of instruction.
== END 2017-04-04 10:48 | disposition home or self-care (01) ==
LOC: ER 09:28
DX: F41.9 Anxiety disorder, unspecified (principal); F43.10 Post-traumatic stress disorder, unspecified; G89.4 Chronic pain syndrome; M19.90 Unspecified osteoarthritis, unspecified site; F17.200 Nicotine dependence, unspecified, uncomplicated; Z96.659 Presence of unspecified artificial knee joint; Z88.6 Allergy status to analgesic agent; Z88.8 Allergy status to other drugs, medicaments and biological substances
CPT/HCPCS: 99284; A4606 ×2; Q0162; Z7610

== ENCOUNTER 2017-04-06 07:35 | Emergency (ER) | payer MEDICARE, MEDICAID ==
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
--- NOTE | 2017-04-06 08:10 | NUR ---
DR VALLADARES TALKING TO THE PATIENT.
== END 2017-04-06 08:25 | disposition left against medical advice (07) ==
LOC: ER 07:39
DX: Z53.21 Procedure and treatment not carried out due to patient leaving prior to being seen by health care provider (principal)

== ENCOUNTER 2017-04-06 23:34 | Emergency (ER) | payer MEDICARE, MEDICAID ==
[~2017-04-06] VITALS: Ht 162.6 cm; Wt 59.0 kg
[2017-04-06 23:38] VITALS: BP 127/73
== END 2017-04-07 00:41 | disposition home or self-care (01) ==
LOC: ER 23:36
DX: G89.29 Other chronic pain (principal); M25.561 Pain in right knee; M19.90 Unspecified osteoarthritis, unspecified site; F41.9 Anxiety disorder, unspecified; F17.200 Nicotine dependence, unspecified, uncomplicated; F11.20 Opioid dependence, uncomplicated; Z98.890 Other specified postprocedural states; Z88.6 Allergy status to analgesic agent; Z88.8 Allergy status to other drugs, medicaments and biological substances; Z76.5 Malingerer [conscious simulation]
CPT/HCPCS: 99283; A4606; Z7610

== ENCOUNTER 2017-04-08 19:33 | Emergency (ER) | payer MEDICARE, MEDICAID ==
--- NOTE | 2017-04-08 19:36 | NUR ---
CALLED TO TRIAGE. NO ANSWER.
--- NOTE | 2017-04-08 20:05 | NUR ---
called for triage. Sleeping in lobby. Won't come in for triage.
--- NOTE | 2017-04-08 22:04 | NUR ---
pt decided she no longer wishes to be seen.
== END 2017-04-08 22:06 | disposition left against medical advice (07) ==
LOC: ER 19:35
DX: Z53.21 Procedure and treatment not carried out due to patient leaving prior to being seen by health care provider (principal)

== ENCOUNTER 2017-04-09 00:27 | Emergency (ER) | payer MEDICARE, MEDICAID ==
[~2017-04-09] VITALS: Ht 152.4 cm; Wt 55.3 kg
[2017-04-09 00:27] VITALS: BP 125/106
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
[2017-04-09] MEDS ORDERED: EPINEPHRINE (1:10,000) SYRINGE 1 MG/10 ML DISP.SYRIN IVP ONE (00:37)
--- NOTE | 2017-04-09 00:55 | NUR ---
PATIENT NOTED WITH MULTIPLE TRAUMA ON THE HEAD, DEFORMITY ON THE LEFT ELBOW AND RIGHT ANKLE. PLEASE SEE CODE BLUE SHEET. PATIENT WAS PRONOUCED BY DR RODRIGUEZ 04/09/2018 AT 0053.
--- NOTE | 2017-04-09 01:04 | NUR ---
REPORTED TO [facility], SPOKE WITH ANITHA, CASE NUMBER IS [id number].
--- NOTE | 2017-04-09 01:10 | NUR ---
CORONERS CASE NUMBER IS [id number]. SPOKE WITH WITHERS.
--- NOTE | 2017-04-09 02:10 | NUR ---
ATTEMPTED TO CALL LULI RICO NEXT OF KIN OF PATIENT (MOTHER) WITH NUMBER [phone]. NUMBER IS FROM [facility]. SPOKE WITH CARINA WARREN IN THIS FACILITY AND WAS GIVEN WITH CONTACT NUMBER OF THE PATIENT'S SON DICKSON - [phone]. LEFT VOICEMAIL TO DICKSON.
== END 2017-04-09 03:48 | disposition expired ==
LOC: ER 00:36
DX: I46.9 Cardiac arrest, cause unspecified (principal); G89.4 Chronic pain syndrome; M19.90 Unspecified osteoarthritis, unspecified site; Z46.82 Encounter for fitting and adjustment of non-vascular catheter; F17.200 Nicotine dependence, unspecified, uncomplicated; F41.9 Anxiety disorder, unspecified; Z88.8 Allergy status to other drugs, medicaments and biological substances; X58.XXXA Exposure to other specified factors, initial encounter; Y93.89 Activity, other specified; Y99.8 Other external cause status; Y92.410 Unspecified street and highway as the place of occurrence of the external cause
CPT/HCPCS: 31500; 36569; 99285; A4606; J0171; Z7610